=== PATIENT | female | born 1945 | race Caucasian/White ===

== ENCOUNTER 2017-07-04 18:20 | Emergency (ER) | payer MEDICARE, BC ==
[2017-07-04 18:42] VITALS: BP 197/101
--- NOTE | 2017-07-04 18:55 | UC ---
Abdominal Pain Female HPI - HPI Summary HPI Summary: This 72-year-old lady comes to the urgent care tonight with 5 days of nausea and vomiting denies fevers denies diarrhea denies illness exposures. - History of Current Complaint Chief Complaint: UCGU Stated Complaint: VOMITING Time Seen by Provider: 07/04/17 18:47 Hx Obtained From: Patient Hx Last Menstrual Period: post ?: No Onset/Duration: Gradual Onset, Lasting Days - 4-5, Still Present Timing: Constant Severity Initially: Moderate Severity Currently: Moderate Pain Intensity: 6 Pain Scale Used: 0-10 Numeric Location: Diffuse Radiates: No Aggravating Factor(s): Food Alleviating Factor(s): Nothing Associated Signs and Symptoms: Positive: Decreased Appetite, Nausea, Vomiting Allergies/Adverse Reactions: Allergies Allergy/AdvReac Type Severity Reaction Status Date / Time amoxicillin [From Augmentin] Allergy , abd pain Verified 07/04/17 19:27 carisoprodol [From Soma] Allergy Dizziness Verified 07/04/17 19:27 celecoxib [From Celebrex] Allergy GI bleed Verified 07/04/17 19:27 cephalexin [From Keflex] Allergy intestinal Verified 07/04/17 19:27 infection clavulanic acid Allergy , abd pain Verified 07/04/17 19:27 [From Augmentin] montelukast [From Singulair] Allergy GI Upset Verified 07/04/17 19:27 nabumetone [From Relafen] Allergy Diarrhea Verified 07/04/17 19:27 Penicillins Allergy bloody Verified 07/04/17 19:27 diarrhea rofecoxib [From Vioxx] Allergy elevated Verified 07/04/17 19:27 blood pressure Sulfa (Sulfonamide Allergy bloody Verified 07/04/17 19:27 Antibiotics) diarrhea sulfamethoxazole Allergy Abdominal Verified 07/04/17 19:27 [From Septra] Pain trimethoprim [From Septra] Allergy Abdominal Verified 07/04/17 19:27 Pain Home Medications: Home Medications lamoTRIgine TAB(*) [Lamictal TAB(*)] 250 mg PO BID 07/04/17 [History Confirmed 07/04/17] PMH/Surg Hx/FS Hx/Imm Hx Previously Healthy: No - chronic pain Cardiovascular History: Hypertension GI/ History: Gastroesophageal Reflux Neurological History: Seizures - Surgical History Surgical History: Yes Surgery Procedure, Year, and Place: HYSTERECTOMY 1989. EYE SURGERY A CHILD. TONSILS. APPENDECTOMY - Family History Known Family History: Positive: None - Social History Occupation: Retired Lives: With Family Alcohol Use: None Substance Use Type: None Smoking Status (MU): Former Smoker Review of Systems Constitutional: Negative Skin: Negative Eyes: Negative ENT: Negative Respiratory: Negative Cardiovascular: Negative Gastrointestinal: Abdominal Pain, Vomiting, Nausea Genitourinary: Negative Motor: Negative Neurovascular: Negative Musculoskeletal: Negative Neurological: Negative Psychological: Negative Is Patient Immunocompromised?: No All Other Systems Reviewed And Are Negative: Yes Physical Exam Triage Information Reviewed: Yes Appearance: Well-Nourished, Ill-Appearing, Pain Distress Vital Signs: Initial Vital Signs Temp 100 F 07/04/17 18:33 Pulse 96 07/04/17 18:33 Resp 16 07/04/17 18:33 BP 197/101 07/04/17 18:33 Pulse Ox 96 07/04/17 18:33 Vital Signs Reviewed: Yes Eye Exam: Normal Eyes: Positive: Conjunctiva Clear ENT Exam: Normal ENT: Positive: Normal ENT inspection, Hearing grossly normal, Pharynx normal, Uvula midline. Negative: Nasal drainage, Trismus, Muffled voice, Hoarse voice, Dental tenderness, Sinus tenderness Dental Exam: Normal Neck exam: Normal Neck: Positive: Supple, Nontender Respiratory Exam: Normal Respiratory: Positive: Chest non-tender, Lungs clear, Normal breath sounds, No respiratory distress, No accessory muscle use Cardiovascular Exam: Normal Cardiovascular: Positive: RRR, No Murmur, Pulses Normal, Brisk Capillary Refill Abdominal Exam: Other Abdomen Description: Positive: No Organomegaly, Soft, Other: - Diffuse generalized discomfort. Negative: CVA Tenderness (R), CVA Tenderness (L), Distended, Guarding, Hernia @, Hepatomegaly, McBurney's Point Tenderness, Peritoneal Signs, Pulsatile Mass, Splenomegaly Bowel Sounds: Positive: Present - No Musculoskeletal Exam: Normal Musculoskeletal: Positive: Strength Intact, ROM Intact, No Edema Neurological Exam: Normal Neurological: Positive: Alert, Muscle Tone Normal Psychological Exam: Normal Skin Exam: Normal Abd Pain Female Course/Dx - Course Course Of Treatment: Patient will maintain nothing by mouth for report to the hospital for further evaluation care and treatment patient refuses ambulance will be driving - Differential Dx/Diagnosis Provider Diagnoses: Acute nausea vomiting, hypertension and poor control Discharge - Sign-Out/Discharge Documenting (check all that apply): Discharge - Discharge Plan Condition: Guarded Disposition: HOME Discharge Disposition Comment: to emergency Department by private car Patient Education Materials: Acute Nausea and Vomiting (ED) Referrals: Erin Boo MD [Primary Care Provider] - Additional Instructions: Ms. Feliciano, as we spoke about in the room her best recommendation fewest go to the emergency department for further evaluation of this acute nausea vomiting and abdominal pain. Please have nothing to eat or drink until you're evaluated and cleared by the emergency room physician. So we are discharging her from the urgent care to go directly to the emergency Department acute [facility] for further evaluation - Billing Disposition and Condition Condition: GUARDED Disposition: HOME
== END 2017-07-04 19:09 | disposition home or self-care (01) ==
LOC: UCEAST 18:20
DX: R11.2 Nausea with vomiting, unspecified (principal); I10 Essential (primary) hypertension; K21.9 Gastro-esophageal reflux disease without esophagitis; R56.9 Unspecified convulsions; Z88.1 Allergy status to other antibiotic agents; Z88.0 Allergy status to penicillin; Z88.2 Allergy status to sulfonamides; Z88.8 Allergy status to other drugs, medicaments and biological substances; Z87.891 Personal history of nicotine dependence
CPT/HCPCS: 99212; G0463

== ENCOUNTER 2017-07-04 19:17 | Emergency (ER) | payer MEDICARE, BC ==
[2017-07-04 20:58] LABS: ABS Basophils 0 10^3/ul (0-0.2); ABS Eosinophils 0 10^3/ul (0-0.6); ABS Lymphocytes 0.9 10^3/ul (1.0-4.8); ABS Monocytes 0.5 10^3/ul (0-0.8); ABS Neutrophils 6.5 10^3/ul (1.5-7.7); ABS Nucleated RBC 0 10^3/ul; Eosinophil % 0 % (0-6); Hematocrit 44 % (35-47); Hemoglobin 14.9 g/dl (12.0-16.0); Lymphocyte % 11.2 % (25-47); Mean Corpuscular HGB Conc 34 g/dl (31-36); Mean Corpuscular Hemoglobin 28 pg (27-31); Mean Corpuscular Volume 81 fL (80-97); Mean Platelet Volume 7.9 um3 (7.4-10.4); Nucleated Red Blood Cells % 0; Platelet Count 201 10^3/ul (150-450); Red Blood Count 5.42 10^6/ul (4.0-5.4); Red Cell Distribution Width 14 % (10.5-15); White Blood Count 7.9 10^3/ul (3.5-10.8)
[2017-07-04 21:43] LABS: Urine Appearance Clear; Urine Blood Negative (Negative); Urine Color Yellow; Urine Ketones 2+ (Negative); Urine Protein Negative (Negative); Urine Specific Gravity 1.015 (1.010-1.030); Urine Urobilinogen Negative (Negative)
[2017-07-04] MEDS ORDERED: Famotidine TAB* 20 MG PO ONE (22:27)
[2017-07-04] MEDS ORDERED: NS 0.9% 1000 ML* 1,000 ML IV ONE (22:27)
[2017-07-04] MEDS ORDERED: Lidocaine 2% VISCOUS* 15 ML UDC PO ONE (22:27)
[2017-07-04] MEDS ORDERED: Ondansetron INJ* 2 MG/ML VIAL IV ONE (22:27)
[2017-07-04] MEDS ORDERED: Ondansetron ODT TAB* 4 MG PO ONE (23:33)
[2017-07-04 23:55] VITALS: BP 170/96
--- NOTE | 2017-07-05 00:38 | ED ---
Debbie Garcia Abhishek, scribed for Geremias Munoz MD on 07/05/17 at 0019 . Abdominal Pain/Female - HPI Summary HPI Summary: The pt is a 72 y/o F presenting to the [facility] with a chief complaint of vomiting. The pt reports the symptoms have been present since Sunday (06/30/17) . She also reports of diarrhea, coughing, nausea, runny nose, and sore throat. She states she is unable to "keep anything down." PT also denies urinary symptoms. The patient rates the pain 2/10 in severity. Symptoms aggravated by nothing. Symptoms alleviated by nothing. - History of Current Complaint Chief Complaint: EDNauseaVomitDiarrh Stated Complaint: VOMITING/COUGH Time Seen by Provider: 07/04/17 22:15 Hx Obtained From: Patient Hx Last Menstrual Period: post Onset/Duration: Lasting Days - since Sunday (06/30/17) Severity Currently: None Pain Intensity: 0 Pain Scale Used: 0-10 Numeric Aggravating Factor(s): Nothing Alleviating Factor(s): Nothing Associated Signs and Symptoms: Positive: Cough, Nausea, Vomiting, Diarrhea, Other: - Sore throat. Negative: Urinary Symptoms Allergies/Adverse Reactions: Allergies Allergy/AdvReac Type Severity Reaction Status Date / Time amoxicillin [From Augmentin] Allergy , abd pain Verified 07/04/17 19:27 carisoprodol [From Soma] Allergy Dizziness Verified 07/04/17 19:27 celecoxib [From Celebrex] Allergy GI bleed Verified 07/04/17 19:27 cephalexin [From Keflex] Allergy intestinal Verified 07/04/17 19:27 infection clavulanic acid Allergy , abd pain Verified 07/04/17 19:27 [From Augmentin] montelukast [From Singulair] Allergy GI Upset Verified 07/04/17 19:27 nabumetone [From Relafen] Allergy Diarrhea Verified 07/04/17 19:27 Penicillins Allergy bloody Verified 07/04/17 19:27 diarrhea rofecoxib [From Vioxx] Allergy elevated Verified 07/04/17 19:27 blood pressure Sulfa (Sulfonamide Allergy bloody Verified 07/04/17 19:27 Antibiotics) diarrhea sulfamethoxazole Allergy Abdominal Verified 07/04/17 19:27 [From ] Pain trimethoprim [From ] Allergy Abdominal Verified 07/04/17 19:27 Pain PMH/Surg Hx/FS Hx/Imm Hx Endocrine/Hematology History: Denies: Hx Diabetes Cardiovascular History: Reports: Hx Hypertension History: Denies: Hx Renal Disease - Cancer History Hx Chemotherapy: No Hx Radiation Therapy: No - Surgical History Surgery Procedure, Year, and Place: HYSTERECTOMY 1989. EYE SURGERY A CHILD. TONSILS. APPENDECTOMY Infectious Disease History: No Infectious Disease History: Denies: Traveled Outside the [place] in Last 30 Days - Family History Known Family History: Positive: Cardiac Disease Negative: Diabetes - Social History Alcohol Use: None Substance Use Type: Reports: None Smoking Status (MU): Former Smoker Review of Systems Constitutional: Negative Eyes: Negative Positive: Sore Throat Cardiovascular: Negative Positive: Cough Positive: Abdominal Pain, Vomiting, Diarrhea, Nausea Positive: no symptoms reported Musculoskeletal: Negative Skin: Negative Neurological: Negative Psychological: Normal All Other Systems Reviewed And Are Negative: Yes Physical Exam - Summary Physical Exam Summary: Appearance: Well appearing, no pain distress Skin: warm, dry, reflects adequate perfusion Head/face: normal Eyes: EOMI, WALKER ENT: Nasal congestion, minor erythema in the throat, Skin thickened reddened areas in the mouth Neck: supple, non-tender Respiratory: CTA, breath sounds present Cardiovascular: RRR, pulses symmetrical Abdomen: non-tender, soft Bowel Sounds: decerased bowel sounds Musculoskeletal: normal, strength/ROM intact Neuro: normal, sensory motor intact, A&Ox3 Triage Information Reviewed: Yes Vital Signs On Initial Exam: Initial Vitals Temp Pulse Resp BP Pulse Ox 99.2 F 85 18 190/104 99 07/04/17 19:25 07/04/17 19:25 07/04/17 19:25 07/04/17 19:25 07/04/17 19:25 Vital Signs Reviewed: Yes Diagnostics - Vital Signs Vital Signs Temp Pulse Resp BP Pulse Ox 07/04/17 23:54 99.0 F 85 16 170/96 99 07/04/17 19:25 99.2 F 85 18 190/104 99 - Laboratory Lab Results: Lab Results 07/04/17 07/04/17 07/04/17 Range/Units 20:39 20:39 21:21 WBC 7.9 (3.5-10.8) 10^3/ul RBC 5.42 H (4.0-5.4) 10^6/ul Hgb 14.9 (12.0-16.0) g/dl Hct 44 (35-47) % MCV 81 (80-97) fL MCH 28 (27-31) pg MCHC 34 (31-36) g/dl RDW 14 (10.5-15) % Plt Count 201 (150-450) 10^3/ul MPV 7.9 (7.4-10.4) um3 Neut % (Auto) 81.7 (38-83) % Lymph % (Auto) 11.2 L (25-47) % Runnels % (Auto) 6.9 (0-7) % Eos % (Auto) 0 (0-6) % Baso % (Auto) 0.2 (0-2) % Absolute Neuts (auto) 6.5 (1.5-7.7) 10^3/ul Absolute Lymphs (auto) 0.9 L (1.0-4.8) 10^3/ul Absolute Monos (auto) 0.5 (0-0.8) 10^3/ul Absolute Eos (auto) 0 (0-0.6) 10^3/ul Absolute Basos (auto) 0 (0-0.2) 10^3/ul Absolute Nucleated RBC 0 10^3/ul Nucleated RBC % 0 Sodium 135 L (139-145) mmol/L Potassium 3.6 (3.5-5.0) mmol/L Chloride 99 L (101-111) mmol/L Carbon Dioxide 24 (22-32) mmol/L Anion Gap 12 H (2-11) mmol/L BUN 6 (6-24) mg/dL Creatinine 0.64 (0.51-0.95) mg/dL Est GFR ( Amer) 117.0 (>60) Est GFR (Non-Af Amer) 91.0 (>60) BUN/Creatinine Ratio 9.4 (8-20) Glucose 108 H (70-100) mg/dL Calcium 10.0 (8.6-10.3) mg/dL Total Bilirubin 0.50 (0.2-1.0) mg/dL AST 26 (13-39) U/L ALT 19 (7-52) U/L Alkaline Phosphatase 68 (34-104) U/L Total Protein 7.6 (6.4-8.9) g/dL Albumin 4.6 (3.2-5.2) g/dL Globulin 3.0 (2-4) g/dL Albumin/Globulin Ratio 1.5 (1-3) Urine Color Yellow Urine Appearance Clear Urine pH 7.0 (5-9) Ur Specific [place] 1.015 (1.010-1.030) Urine Protein Negative (Negative) Urine Ketones 2+ A (Negative) Urine Blood Negative (Negative) Urine Nitrate Negative (Negative) Urine Bilirubin Negative (Negative) Urine Urobilinogen Negative (Negative) Ur Leukocyte Esterase Trace A (Negative) Urine WBC (Auto) Trace(0-5/hpf) (Absent) Urine RBC (Auto) 1+(3-5/hpf) A (Absent) Ur Squamous Epith Cells Present A (Absent) Urine Bacteria Absent (Absent) Urine Glucose Negative (Negative) Result Diagrams: 07/04/17 20:39 07/04/17 20:39 Lab Statement: Any lab studies that have been ordered have been reviewed, and results considered in the medical decision making process. Re-Evaluation - Re-Evaluation First Eval Change: Improved Abdominal Pain Fem Course/Dx - Course Course Of Treatment: URI sx now with vomiting and burning in throat. Given IVF and pepcid/visc lidocaine along with zofran with complete relief. Labs benign. Abd soft and nontender. D/C on similar meds. F/U PMD. - Diagnoses Provider Diagnoses: Upper respiratory infection, Acute gastritis Discharge - Sign-Out/Discharge Documenting (check all that apply): Discharge - Discharged home - Discharge Plan Condition: Improved Disposition: HOME Prescriptions: Famotidine TAB* [Pepcid 20 MG TAB*] 20 mg PO BID #10 tab Ondansetron [Zofran Odt] 4 mg PO TID PRN #10 tab.rapdis PRN Reason: Nausea Patient Education Materials: Gastritis (ED), Upper Respiratory Infection (ED) Referrals: Erin Boo MD [Primary Care Provider] - Additional Instructions: Stay well hydrated. Avoid ibuprofen, caffeine and alcohol. Return with persistent vomiting, trouble breathing, worse or other concerns. You may experience diarrhea. Call your doctor first thing in the morning to follow up. - Billing Disposition and Condition Condition: IMPROVED Disposition: HOME The documentation as recorded by the Debbie pickard Abhishek accurately reflects the service I personally performed and the decisions made by me, Geremias Munoz MD.
== END 2017-07-04 23:56 | disposition home or self-care (01) ==
LOC: ED 19:17
DX: K29.70 Gastritis, unspecified, without bleeding (principal); J06.9 Acute upper respiratory infection, unspecified; R05 Cough; R11.2 Nausea with vomiting, unspecified; R19.7 Diarrhea, unspecified; J02.9 Acute pharyngitis, unspecified; Z87.891 Personal history of nicotine dependence; I10 Essential (primary) hypertension; K21.9 Gastro-esophageal reflux disease without esophagitis; R56.9 Unspecified convulsions; Z88.1 Allergy status to other antibiotic agents; Z88.0 Allergy status to penicillin; Z88.2 Allergy status to sulfonamides; Z88.8 Allergy status to other drugs, medicaments and biological substances
CPT/HCPCS: 36415; 80053; 81003; 81015; 85025; 87086; 96374; 99212; 99283; A9270-GY; G0463; J2405

== ENCOUNTER 2017-07-08 10:51 | Inpatient (IN) | payer MEDICARE, BC ==
[2017-07-08] MEDS ORDERED: NS 0.9% 1000 ML* 1,000 ML IV ONE (11:21)
--- NOTE | 2017-07-08 11:50 | RAD ---
HISTORY: Nausea and vomiting COMPARISONS: None VIEWS: Frontal supine and upright views of the abdomen. FINDINGS: BOWEL: There is a nonobstructive bowel gas pattern. There is a large amount of stool within the colon. CALCULI: There are no abnormal calculi. BONES AND SOFT TISSUES: There is a scoliotic curvature of the spine. Mild degenerative changes are noted. OTHER FINDINGS: The lung bases are clear. There is no subphrenic gas. IMPRESSION: NONOBSTRUCTIVE BOWEL GAS PATTERN.
[2017-07-08] MEDS ORDERED: Ondansetron INJ* 2 MG/ML VIAL IV ONE (12:24)
[2017-07-08 12:29] LABS: ABS Basophils 0 10^3/ul (0-0.2); ABS Eosinophils 0 10^3/ul (0-0.6); ABS Lymphocytes 0.9 10^3/ul (1.0-4.8); ABS Monocytes 0.5 10^3/ul (0-0.8); ABS Neutrophils 3.8 10^3/ul (1.5-7.7); ABS Nucleated RBC 0 10^3/ul; Eosinophil % 0.1 % (0-6); Hematocrit 40 % (35-47); Hemoglobin 13.7 g/dl (12.0-16.0); Lymphocyte % 17.7 % (25-47); Mean Corpuscular HGB Conc 34 g/dl (31-36); Mean Corpuscular Hemoglobin 27 pg (27-31); Mean Corpuscular Volume 80 fL (80-97); Mean Platelet Volume 7.4 um3 (7.4-10.4); Nucleated Red Blood Cells % 0; Platelet Count 202 10^3/ul (150-450); Red Blood Count 5.01 10^6/ul (4.0-5.4); Red Cell Distribution Width 14 % (10.5-15); White Blood Count 5.2 10^3/ul (3.5-10.8)
[2017-07-08 12:38] LABS: INR 0.94 (0.77-1.02)
[2017-07-08 12:44] LABS: EGFR Non-African American 92.6 (>60)
[2017-07-08] MEDS ORDERED: Iohexol 300* (CONTRAST) 10 ML SDV IV ONE (13:45)
[2017-07-08 13:57] LABS: Urine Appearance Clear; Urine Blood 1+ (Negative); Urine Color Straw; Urine Ketones Trace (Negative); Urine Protein Negative (Negative); Urine Specific Gravity 1.003 (1.010-1.030); Urine Urobilinogen Negative (Negative)
--- NOTE | 2017-07-08 14:36 | RAD ---
CLINICAL HISTORY: Nausea and vomiting COMPARISON: None TECHNIQUE: Multiple contiguous axial CT scans were obtained of the abdomen and pelvis after the administration of intravenous contrast. Coronal and sagittal multiplanar reformations are submitted for review. Oral contrast was administered. Delayed images were obtained through the abdomen and pelvis. FINDINGS: LUNG BASES: The lung bases are clear. LIVER: The liver is normal in shape, size, contour, and attenuation. BILE DUCTS: There is no intrahepatic or extrahepatic biliary dilatation. GALLBLADDER: The gallbladder is normal, without pericholecystic inflammatory change. PANCREAS: The pancreas is normal, without mass or ductal dilatation. SPLEEN: Normal in size and appearance. UPPER GI TRACT: Evaluation of the gastrointestinal tract is limited by incomplete gastric distention. The upper GI tract is unremarkable. SMALL BOWEL AND MESENTERY: The small bowel is normal in contour, course, and caliber. There is no obstruction or dilatation. COLON: There is segmental mucosal thickening of the ascending colon best seen on coronal image 40, with narrowing of the lumen of the large bowel. The appendix is not clearly visualized. ADRENALS: Normal bilaterally. KIDNEYS: The kidneys are normal in shape, size, contour, and axis. There is no hydronephrosis or nephrolithiasis. BLADDER: The bladder is smooth in contour. PELVIC ORGANS: The pelvic organs are not visualized. AORTA: There is calcific atherosclerotic disease of the abdominal aorta and its branches, without aneurysmal dilatation IVC: Unremarkable LYMPH NODES: There is no lymphadenopathy by size criteria. ABDOMINAL WALL: There is no evidence for abdominal wall hernia. BONES AND SOFT TISSUES: There is grade 1 anterolisthesis of L4-L5. OTHER: None IMPRESSION: THERE IS FOCAL MUCOSAL THICKENING AND NARROWING OF THE LUMEN OF THE ASCENDING COLON. WHILE THIS MAY BE AN ARTIFACT OF PERISTALSIS OR MAY REPRESENT FOCAL COLITIS, INCLUDING IN THE SETTING OF INFLAMMATORY BOWEL DISEASE, MUCOSAL NEOPLASM IS ALSO WITHIN THE DIFFERENTIAL. RECOMMEND CONSIDERATION OF CORRELATION WITH DIRECT VISUALIZATION. ATHEROSCLEROSIS.
[2017-07-08] MEDS ORDERED: Potassium Chlor TAB* 20 MEQ TAB.ER PO ONE (15:03)
[2017-07-08] MEDS ORDERED: NS 0.9% 1000 ML* 1,000 ML IV SCH (16:15)
[2017-07-08] MEDS ORDERED: oxyCODONE TAB* 5 MG TAB PO PRN (16:52)
[2017-07-08] MEDS ORDERED: Ondansetron ODT TAB* 4 MG PO PRN (16:52)
[2017-07-08] MEDS: NS 0.9% w/ 40 Meq KCL 1000 ML* 1,000 ML IV SCH (18:31)
--- NOTE | 2017-07-08 18:31 | ED ---
Gosia Garcia Gabriel, scribed for Paulo Layton MD on 07/08/17 at 1114 . GI/ HPI - HPI Summary HPI Summary: This patient is a 72 year old F presenting to [facility] accompanied by her with a chief complaint of vomiting that began a week ago. She has not vomited today. The patient rates the pain 2/10 in severity. Patient reports nausea, cough, inability to pass stool for the last 5 days, and decreased PO intake. Patient denies ABD pain and that she has passed gas. Hx appendectomy. The patient was recently diagnosed with the flu and was seen on 07-04-17 for the same current symptoms. - History of Current Complaint Chief Complaint: EDNauseaVomitDiarrh Time Seen by Provider: 07/08/17 11:08 Stated Complaint: NAUSEA/COUGHING Hx Obtained From: Patient Hx Last Menstrual Period: post Onset/Duration: Started Weeks Ago - 1, Still Present Timing: Constant Severity: Moderate Current Severity: Moderate Pain Intensity: 2 Location of Pain: Diffuse Associated Signs and Symptoms: Positive: Negative - ABD pain and that she has passed gas., Other: - nausea, cough, inability to pass stool for the last 5 days , and decreased PO intake - Allergy/Home Medications Allergies/Adverse Reactions: Allergies Allergy/AdvReac Type Severity Reaction Status Date / Time amoxicillin [From Augmentin] Allergy , abd pain Verified 07/08/17 10:55 carisoprodol [From Soma] Allergy Dizziness Verified 07/08/17 10:55 celecoxib [From Celebrex] Allergy GI bleed Verified 07/08/17 10:55 cephalexin [From Keflex] Allergy intestinal Verified 07/08/17 10:55 infection clavulanic acid Allergy , abd pain Verified 07/08/17 10:55 [From Augmentin] montelukast [From Singulair] Allergy GI Upset Verified 07/08/17 10:55 nabumetone [From Relafen] Allergy Diarrhea Verified 07/08/17 10:55 Penicillins Allergy bloody Verified 07/08/17 10:55 diarrhea rofecoxib [From Vioxx] Allergy elevated Verified 07/08/17 10:55 blood pressure Sulfa (Sulfonamide Allergy bloody Verified 07/08/17 10:55 Antibiotics) diarrhea sulfamethoxazole Allergy Abdominal Verified 07/08/17 10:55 [From Septra] Pain trimethoprim [From ] Allergy Abdominal Verified 07/08/17 10:55 Pain Home Medications: Home Medications Aspirin EC TAB* [Ecotrin EC Low Dose 81 MG*] 81 mg PO DAILY 07/08/17 [History Confirmed 07/08/17] Atorvastatin* [Lipitor*] 20 mg PO DAILY 07/08/17 [History Confirmed 07/08/17] Docusate Sodium [Stool Softener] 250 mg PO BID 07/08/17 [History Confirmed 07/08] Milnacipran(NF) [Savella(NF)] 50 mg PO BID 07/08/17 [History Confirmed 07/08/17] Moexipril HCl 15 mg PO DAILY 07/08/17 [History Confirmed 07/08/17] Senna TAB* [Senokot TAB*] 1 tab PO BID 07/08/17 [History Confirmed 07/08/17] lamoTRIgine TAB(*) [LaMICtal TAB(*)] 250 mg PO BID 07/08/17 [History Confirmed 07/08/17] oxyCODONE SR TAB(*) [Oxycontin 10 mg (*)] 30 mg PO Q12H 07/08/17 [History Confirmed 07/08/17] oxyCODONE TAB* [Roxycodone TAB 5 mg*] 5 mg PO .QD-TID PRN 07/08/17 [History Confirmed 07/08/17] PMH/Surg Hx/FS Hx/Imm Hx Endocrine/Hematology History: Denies: Hx Diabetes Cardiovascular History: Reports: Hx Hypertension History: Denies: Hx Renal Disease - Cancer History Hx Chemotherapy: No Hx Radiation Therapy: No - Surgical History Surgery Procedure, Year, and Place: HYSTERECTOMY 1989. EYE SURGERY A CHILD. TONSILS. APPENDECTOMY Infectious Disease History: No Infectious Disease History: Denies: Traveled Outside the [place] in Last 30 Days - Family History Known Family History: Positive: Cardiac Disease Negative: Diabetes - Social History Alcohol Use: None Substance Use Type: Reports: None Smoking Status (MU): Former Smoker Review of Systems Positive: Other - decreased PO intake Positive: Cough Gastrointestinal: Other - inability to pass stool and gas Positive: Vomiting, Nausea. Negative: Abdominal Pain All Other Systems Reviewed And Are Negative: Yes Physical Exam - Summary Physical Exam Summary: VITAL SIGNS: Reviewed. GENERAL: Patient is a well-developed and nourished female who is lying comfortable in the stretcher. Patient is not in any acute respiratory distress. HEAD AND FACE: No signs of trauma. No ecchymosis, hematomas or skull depressions. No sinus tenderness. EYES: PERRLA, EOMI x 2, No injected conjunctiva, no nystagmus. EARS: Hearing grossly intact. Ear canals and tympanic membranes are within normal limits. MOUTH: Oropharynx within normal limits. NECK: Supple, trachea is midline, no adenopathy, no JVD, no carotid bruit, no c- spine tenderness, neck with full ROM. CHEST: Symmetric, no tenderness at palpation LUNGS: Clear to auscultation bilaterally. No wheezing or crackles. CVS: Regular rate and rhythm, S1 and S2 present, no murmurs or gallops appreciated. ABDOMEN: Soft, non-tender. No signs of distention. No rebound no guarding, and no masses palpated. Bowel sounds are decreased EXTREMITIES: FROM in all major joints, no edema, no cyanosis or clubbing. NEURO: Alert and oriented x 3. No acute neurological deficits. Speech is normal and follows commands. SKIN: Dry and warm Triage Information Reviewed: Yes Vital Signs On Initial Exam: Initial Vitals Temp Pulse Resp BP Pulse Ox 98.8 F 92 15 163/89 97 07/08/17 10:55 07/08/17 10:55 07/08/17 10:55 07/08/17 10:55 07/08/17 10:55 Vital Signs Reviewed: Yes Diagnostics - Vital Signs Vital Signs Temp Pulse Resp BP Pulse Ox 07/08/17 10:55 98.8 F 92 15 163/89 97 - Laboratory Lab Results: Lab Results 07/08/17 07/08/17 07/08/17 Range/Units 12:10 12:10 12:10 WBC 5.2 (3.5-10.8) 10^3/ul RBC 5.01 (4.0-5.4) 10^6/ul Hgb 13.7 (12.0-16.0) g/dl Hct 40 (35-47) % MCV 80 (80-97) fL MCH 27 (27-31) pg MCHC 34 (31-36) g/dl RDW 14 (10.5-15) % Plt Count 202 (150-450) 10^3/ul MPV 7.4 (7.4-10.4) um3 Neut % (Auto) 73.1 (38-83) % Lymph % (Auto) 17.7 L (25-47) % Swisher % (Auto) 8.9 H (0-7) % Eos % (Auto) 0.1 (0-6) % Baso % (Auto) 0.2 (0-2) % Absolute Neuts (auto) 3.8 (1.5-7.7) 10^3/ul Absolute Lymphs (auto) 0.9 L (1.0-4.8) 10^3/ul Absolute Monos (auto) 0.5 (0-0.8) 10^3/ul Absolute Eos (auto) 0 (0-0.6) 10^3/ul Absolute Basos (auto) 0 (0-0.2) 10^3/ul Absolute Nucleated RBC 0 10^3/ul Nucleated RBC % 0 INR (Anticoag Therapy) (0.77-1.02) APTT (26.0-36.3) seconds Sodium 132 L (139-145) mmol/L Potassium 3.0 L (3.5-5.0) mmol/L Chloride 92 L (101-111) mmol/L Carbon Dioxide 30 (22-32) mmol/L Anion Gap 10 (2-11) mmol/L BUN 4 L (6-24) mg/dL Creatinine 0.63 (0.51-0.95) mg/dL Est GFR ( Amer) 119.1 (>60) Est GFR (Non-Af Amer) 92.6 (>60) BUN/Creatinine Ratio 6.3 L (8-20) Glucose 116 H (70-100) mg/dL Lactic Acid 1.0 (0.5-2.0) mmol/L Calcium 9.8 (8.6-10.3) mg/dL Total Bilirubin 0.60 (0.2-1.0) mg/dL AST 23 (13-39) U/L ALT 19 (7-52) U/L Alkaline Phosphatase 64 (34-104) U/L Troponin I 0.00 (<0.04) ng/mL C-Reactive Protein 87.22 H (< 5.00) mg/L Total Protein 7.3 (6.4-8.9) g/dL Albumin 4.2 (3.2-5.2) g/dL Globulin 3.1 (2-4) g/dL Albumin/Globulin Ratio 1.4 (1-3) Amylase 19 L (29-103) U/L Lipase < 10 L (11.0-82.0) U/L Urine Color Urine Appearance Urine pH (5-9) Ur Specific [place] (1.010-1.030) Urine Protein (Negative) Urine Ketones (Negative) Urine Blood (Negative) Urine Nitrate (Negative) Urine Bilirubin (Negative) Urine Urobilinogen (Negative) Ur Leukocyte Esterase (Negative) Urine WBC (Auto) (Absent) Urine RBC (Auto) (Absent) Ur Squamous Epith Cells (Absent) Urine Bacteria (Absent) Urine Glucose (Negative) 07/08/17 07/08/17 Range/Units 12:10 13:36 WBC (3.5-10.8) 10^3/ul RBC (4.0-5.4) 10^6/ul Hgb (12.0-16.0) g/dl Hct (35-47) % MCV (80-97) fL MCH (27-31) pg MCHC (31-36) g/dl RDW (10.5-15) % Plt Count (150-450) 10^3/ul MPV (7.4-10.4) um3 Neut % (Auto) (38-83) % Lymph % (Auto) (25-47) % Swisher % (Auto) (0-7) % Eos % (Auto) (0-6) % Baso % (Auto) (0-2) % Absolute Neuts (auto) (1.5-7.7) 10^3/ul Absolute Lymphs (auto) (1.0-4.8) 10^3/ul Absolute Monos (auto) (0-0.8) 10^3/ul Absolute Eos (auto) (0-0.6) 10^3/ul Absolute Basos (auto) (0-0.2) 10^3/ul Absolute Nucleated RBC 10^3/ul Nucleated RBC % INR (Anticoag Therapy) 0.94 (0.77-1.02) APTT 20.2 L (26.0-36.3) seconds Sodium (139-145) mmol/L Potassium (3.5-5.0) mmol/L Chloride (101-111) mmol/L Carbon Dioxide (22-32) mmol/L Anion Gap (2-11) mmol/L BUN (6-24) mg/dL Creatinine (0.51-0.95) mg/dL Est GFR ( Amer) (>60) Est GFR (Non-Af Amer) (>60) BUN/Creatinine Ratio (8-20) Glucose (70-100) mg/dL Lactic Acid (0.5-2.0) mmol/L Calcium (8.6-10.3) mg/dL Total Bilirubin (0.2-1.0) mg/dL AST (13-39) U/L ALT (7-52) U/L Alkaline Phosphatase (34-104) U/L Troponin I (<0.04) ng/mL C-Reactive Protein (< 5.00) mg/L Total Protein (6.4-8.9) g/dL Albumin (3.2-5.2) g/dL Globulin (2-4) g/dL Albumin/Globulin Ratio (1-3) Amylase (29-103) U/L Lipase (11.0-82.0) U/L Urine Color Straw Urine Appearance Clear Urine pH 7.0 (5-9) Ur Specific [place] 1.003 L (1.010-1.030) Urine Protein Negative (Negative) Urine Ketones Trace A (Negative) Urine Blood 1+ A (Negative) Urine Nitrate Negative (Negative) Urine Bilirubin Negative (Negative) Urine Urobilinogen Negative (Negative) Ur Leukocyte Esterase Trace A (Negative) Urine WBC (Auto) Trace(0-5/hpf) (Absent) Urine RBC (Auto) Trace(0-2/hpf) (Absent) Ur Squamous Epith Cells Present A (Absent) Urine Bacteria Absent (Absent) Urine Glucose Negative (Negative) Result Diagrams: 07/08/17 12:10 07/08/17 12:10 Lab Statement: Any lab studies that have been ordered have been reviewed, and results considered in the medical decision making process. - Radiology ABD Xray Radiology Interpretation Completed By: Radiologist - NONOBSTRUCTIVE BOWEL GAS PATTERN. ED physician has reviewed this radiology report. - CT CT ABD/pelvis CT Interpretation Completed By: Radiologist - THERE IS FOCAL MUCOSAL THICKENING AND NARROWING OF THE LUMEN OF THE ASCENDING COLON. WHILE THIS MAY BE AN ARTIFACT OF PERISTALSIS OR MAY REPRESENT FOCAL COLITIS, INCLUDING IN THE SETTING OF INFLAMMATORY BOWEL DISEASE, MUCOSAL NEOPLASM IS ALSO WITHIN THE DIFFERENTIAL. RECOMMEND CONSIDERATION OF CORRELATION WITH DIRECT VISUALIZATION. ATHEROSCLEROSIS. Dr. Layton has reviewed this report. - EKG 12:13 Cardiac Rate: NL EKG Rhythm: Sinus Rhythm - at 83 BPM EKG Interpretation: multiple PVCs, no stemi GIGU Course/Dx - Course Assessment/Plan: In the ED course an IV access was obtained. Patient was placed in a rn cardiac cath. Patient was started with IV fluids for rehydration and Zofran for nausea and vomiting. Labs without any significant abnormality except for K+ 3 for which she was given K+CL. Troponin #1: 0.0. EKG shows a NSR w/o ST elevations. Abdominal Xray impression: NONOBSTRUCTIVE BOWEL GAS PATTERN. Abdominal and pelvic CT IMPRESSION: THERE IS FOCAL MUCOSAL THICKENING AND NARROWING OF THE LUMEN OF THE ASCENDING COLON. WHILE THIS MAY BE AN ARTIFACT OF PERISTALSIS OR MAY REPRESENT FOCAL COLITIS, INCLUDING IN THE SETTING OF INFLAMMATORY BOWEL DISEASE, MUCOSAL NEOPLASM IS ALSO WITHIN THE DIFFERENTIAL. RECOMMEND CONSIDERATION OF CORRELATION WITH DIRECT VISUALIZATION. ATHEROSCLEROSIS. I discussed the abd and pelvic CT results with Dr. Tovar and he will consult for the patient and recommends admission to the hospitalist. I discuss my physical exam, findings and test results with Dr. Gusman from the hospitalist services and he agrees to admit patient to his services. Patient is hemodynamically stable alert and oriented x 3. - Diagnoses Differential Diagnoses - Female: Bowel Obstruction, Constipation, Colitis, Fecal Impaction Provider Diagnoses: Nausea and vomiting, Colitis - Physician Notifications Discussed Care Of Patient With: Wendy Gusman Instructed by Provider To: Admit As Inpatient Discharge - Sign-Out/Discharge Documenting (check all that apply): Discharge - Discharge Plan Condition: Stable Disposition: ADMITTED TO [facility] - Billing Disposition and Condition Condition: STABLE Disposition: [facility] [place] The documentation as recorded by the Gosia pickard Gabriel accurately reflects the service I personally performed and the decisions made by , Paulo Layton MD.
[2017-07-08] MEDS: oxyCODONE SR TAB(*) 10 MG TAB.SR PO SCH (19:28)
[2017-07-08] MEDS: Famotidine TAB* 20 MG PO SCH (21:20)
[2017-07-08] MEDS: lamoTRIgine TAB(*) 100 MG PO SCH (21:23)
[2017-07-08] MEDS: Ondansetron INJ* 2 MG/ML VIAL IV PRN (21:23)
[2017-07-08] MEDS: Heparin VIAL(*) 5000 UNITS/ML VIAL (FIVE THOUSAND) SUBCUT SCH (21:24)
[2017-07-08] MEDS: MILNACIPRAN 50 MG PO SCH (21:42)
[2017-07-09] MEDS: NS 0.9% w/ 40 Meq KCL 1000 ML* 1,000 ML IV SCH ×2 (02:05→16:35)
--- NOTE | 2017-07-09 02:44 | HP ---
CC: Dr. Erin Boo * [facility] MEDICINE HISTORY AND PHYSICAL: DATE OF ADMISSION: 07/08/17 PRIMARY CARE PHYSICIAN: Dr. Erin Boo. ATTENDING PHYSICIAN: Dr. Manuelito Gandhi * (dictation provided by Isabelle Mejía NP ). CHIEF COMPLAINT: Nausea, vomiting and poor appetite. HISTORY OF PRESENT ILLNESS: Ms. Feliciano is a 72-year-old female with a past medical history of hypertension, hyperlipidemia, seizure disorder, suspected irritable bowel syndrome, fibromyalgia and depression, who presents to the hospital today with concern for 9 days of not feeling well including nausea, vomiting and poor appetite. Ms. Feliciano states that her symptoms began last Sunday. At that point, she just had a vague sense that things "just weren't right." By Sunday, she was having vomiting. She states that since Sunday, she has had on and off vomiting. She has vomited every day, sometimes 2 to 3 times a day. She notes that when she tries to eat that she often gags. She thinks that she has not been able to tolerate any oral intake including liquids. She denies any abdominal pain. She denies any diarrhea and states she has not had a bowel movement for 9 days. She tells me that she has not urinated for 9 days other than may be "a drip here or there." She denies any fever. She denies any chills. She has had no headache. She has had no chest pain. She has no shortness of breath. She states that her last colonoscopy was a few years ago and that when she was due for a repeat colonoscopy, she had a Cologuard test, which was negative. This was about 2 to 3 years ago. She states that she generally has periods of constipation alternating with diarrhea , which she thought was irritable bowel syndrome though she does not believe that she has an official diagnosis. Ms. Felciiano was seen in our emergency room on 07/04/17. At that time, she was evaluated and given intravenous fluids. Her exam and workup was unremarkable. She was discharged from the ED. No x-rays or CT was obtained at that time. She has been following with Dr. Kaci Goldman from Dr. Erin Boo's office. She had an appointment with her there on Sunday and spoke with Dr. Goldman yesterday as well. The recommendation was that if she did not feel better by today that she should come to the emergency room for evaluation. Here today, she has labs, which show trace leuk esterase, but otherwise negative urinalysis. She has no leukocytosis. Her CRP is 87.22. She has mild hyponatremia at 132, mild hypokalemia at 3.0, her BUN was low at 4, but her creatinine is normal. Her lipase was less than 10. Her amylase was 19 and her LFTs are normal. She had an abdominal x-ray that showed a nonobstructive bowel gas pattern. She then went on for an abdomen and pelvis CT, which showed " there is focal mucosal thickening and narrowing of the lumen of the ascending colon. While this may be an artifact or peristalsis, or may represent focal colitis including in the setting of inflammatory bowel disease, mucosal neoplasm is also within the differential. Recommend consideration of correlation with direct visualization. For this reason, Dr. Tovar was contacted and he requested that the patient be observed in the hospital overnight with plans for consultation tomorrow and possible direct visualization via colonoscopy. PAST MEDICAL HISTORY: 1. Seizure disorder, partial, well controlled. 2. Hyperlipidemia. 3. Hypertension. 4. Question of irritable bowel syndrome. 5. Fibromyalgia. 6. Depression. 7. Osteoarthritis. 8. History of C. difficile colitis. PAST SURGICAL HISTORY: 1. History of appendectomy. 2. History of hysterectomy. MEDICATIONS: 1. Docusate 250 mg p.o. b.i.d. 2. Moexipril 15 mg p.o. daily. 3. Senna 1 tab p.o. b.i.d. 4. Aspirin 81 mg p.o. daily. 5. Atorvastatin 20 mg p.o. daily. 6. Famotidine 20 mg p.o. b.i.d. 7. Lamotrigine 250 mg p.o. b.i.d. 8. Milnacipran 50 mg p.o. b.i.d. 9. Ondansetron 4 mg p.o. t.i.d. 10. Oxycodone SR 30 mg p.o. q.12 hours. 11. Oxycodone 5 mg p.o. t.i.d. p.r.n. pain. ALLERGIES: AMOXICILLIN, CARISOPRODOL, CELECOXIB, CEPHALEXIN, CLAVULANIC ACID, MONTELUKAST, NABUMETONE, PENICILLIN, ROFECOXIB, SULFA, SULFAMETHIZOLE and TRIMETHOPRIM. FAMILY HISTORY: The patient reports that her dad at age 42 from lymphosarcoma. Her mother just at age 93 of old age. She has a sister who had a cardiac arrest recently at age 66 during a back surgery, which she was revived. SOCIAL HISTORY: The patient quit smoking at the age about 19 years old. She states she used to drink heavily, but has not drank in a long time. No reported drug use. She lives with her , who is her healthcare proxy. REVIEW OF SYSTEMS: Constitutional: No fevers, chills. No unintended weight loss. Cardiac: No chest pain, no edema. Respiratory: No cough, hemoptysis or shortness of breath. GI: Positive for nausea, vomiting, no diarrhea, no abdominal pain. : No gross hematuria, dysuria. The patient reports poor urine output. Neuro: No focal weakness or sensory loss. Eyes: No visual complaints. ENT: No dysphagia. Musculoskeletal: Positive for chronic pain with fibromyalgia. Skin: No rashes or lesions. Psych: Positive for depression. PHYSICAL EXAMINATION GENERAL: Ms. Feliciano is lying in the bed with her daughter at the bedside. She is in no acute distress. VITAL SIGNS: Blood pressure 161/83, heart rate 80, respiratory rate 16, temperature 98.8, O2 saturation 94% on room air. LUNGS: Clear to auscultation bilaterally with no accessory muscle use and good aeration. HEART: S1, S2. No murmur, rub, or gallop and regular. ABDOMEN: Soft, it is nontender throughout. Bowel sounds are positive. There is no rebound. There is no guarding. EXTREMITIES: No cyanosis or edema. NEUROLOGIC: She is alert, she is oriented x3. She moves all extremities equally. There is no facial asymmetry or focal weakness. Extraocular movements are intact. SKIN: Intact. DIAGNOSTIC STUDIES/LAB DATA: WBC 5.2, hemoglobin 13.7, hematocrit 40, platelet count 202. INR 0.94, Sodium 132, potassium 3.0, chloride 92, serum bicarbonate 30, BUN 4, creatinine 0.63, glucose 116, lactic acid 1.0. CRP 87.22. Troponin 0.00. Amylase 19, lipase less than 10. Urine shows trace leuk esterase only. No other evidence of infection. The abdomen x-ray and the abdomen and pelvis CT are as read above in the HPI. ASSESSMENT: Ms. Feliciano is a 72-year-old female with a past medical history of hypertension, hyperlipidemia, questionable irritable bowel syndrome, seizure disorder, fibromyalgia, and depression who presents today to the hospital with concerns for feeling unwell for 9 days including symptoms of nausea, vomiting, poor appetite and inability to tolerate oral intake and report of no bowel movement and very poor urination. Our plans are for observation in the hospital for the followin. Nausea, vomiting with poor oral intake. Ms. Feliciano's report of no urine output and no bowel movements for 9 days is not supported by her labs values or overall clinical picture. She is urinating copious amounts of urine in the emergency room. I do note that she was hydrated well so perhaps there was a component of dehydration that did contribute to decreased urine output as an outpatient, but she is urinating well now. Her abdomen is soft. She is tolerating liquids in the emergency room. She has been drinking water throughout my examination. She does, however, have this abnormality on her CT of the abdomen and our plans will be hydrate her overnight well and to replete her electrolytes including her sodium with normal saline as well as potassium. She has received 40 mEq of p.o. potassium in the emergency department and has not vomited this medication. I have also spoken with Dr. Tovar from Gastroenterology and he will be consulting on the patient and determine any further workup as indicated. The patient will have Zofran available p.r.n. She will have clear liquid only. Her overall clinical picture is unclear based on her description of events, given the nausea, malaise, and elevated CRP, will check a flu swab. 2. Hypertension. The patient takes moexipril at home. Plan to hold this medication during acute illness. 3. Seizure disorder. Continue lamotrigine. 4. Gastroesophageal reflux disease. Continue famotidine. 5. Hyperlipidemia. Continue atorvastatin. 6. Chronic pain with fibromyalgia. Continue OxyContin, oxycodone. 7. DVT prophylaxis with heparin subcu. 8. Code status: Full code. TIME SPENT: Approximately 60 minutes were spent on admission of this patient; more than half time spent with the patient at the bedside reviewing the events leading up to this hospitalization, performing the physical examination and reviewing the plan of care. ISABELLE MEJÍA, EXTRUDER [id number]/[facility] #: [id number] [facility]ENTERNino
--- NOTE | 2017-07-09 03:17 | CONS ---
GASTROENTEROLOGY CONSULTATION DATE: 07/08/17 CONSULTING PHYSICIANS: Erin Boo; Isabelle Mejía NP REASON FOR CONSULTATION: Nausea and vomiting for 9 days and no stool for 6 or 7 evaluated so far with an emergency room visit 07/04/17 and then a followup with her primary 3 days later - seen in the ER with her and daughter Gabbie HISTORY: This 72-year-old woman with history of fibromyalgia and depression and irritable bowel syndrome, comes in complaining of continuing nausea and vomiting. She says that about 8 or 9 days ago, she just started feeling nonspecifically poorly and then 8 days ago began vomiting every day and has eaten next to nothing. She felt she had a head cold and cough (listed in the ER note). The vomiting occurred pretty much every day. She said she had no appetite. She stopped having stools about 6 days ago. She came to the ER on complaining of vomiting, some diarrhea, some nausea, runny nose, sore throat. Her temp was 99.2, blood pressure 190/104. CBC normal. Sodium 135, potassium 3.6, BUN 6, creatinine 0.64. LFTs normal. Urinalysis showed specific gravity of 1.015. She was given some IV fluids and seemed stable and was sent home. She was seen at her primary office [address] Goldman covering for Dr Boo and per the patient and , nothing specific was identified. She spoke to the primary office yesterday and she was encouraged to drink. Today with continued complaints of nausea, not feeling well and no stool, came in. She received Zofran in the emergency room and credits that as the reason that today she has not vomited. In the ER, she has had no fever. Her labs are normal. Two views of the abdomen showed apparent accumulation of gas in the left colon, so a CT scan was done and that raised a question of thickening of the ascending colon near the hepatic flexure. She has had a history of several colonoscopies because of a family history of colon cancer in her younger brother. There was a screening sigmoidoscopy in 1995, colonoscopy and ileoscopy 2000 (by me), colonoscopy by me April 2008 showing diverticulosis and then because of repetitive loose stools, Dr. Villegas did a colonoscopy in April 2010 with random biopsy for microscopic colitis. No colitis was seen. Because of this 2 or 3 years ago when her screening interval came up again, she elected to have Cologuard and that was per her report negative. Her family points out that she has been complaining of having no appetite for number of months, visiting her daughter's house and not eating anything. Nonetheless at her last primary f/u visit (occur every 3 months) 3 weeks ago because of a complaint of weight gain (pt statement in ER), Dr Boo changed her fibromyalgia treatment from Cymbalta to Savella PAST MEDICAL HISTORY: 1. Fibromyalgia. 2. Depression. 3. Anxiety. 4. Status post appendectomy at age 44. 5. Hysterectomy and right salpingo-oophorectomy in 1989. 6. Cystocele and rectocele repair in 2004. Medications - ALLERGIES: Numerous and reviewed enumerated in several notes. Social History - She is to a nursing home and retired from the [employer] system. Her daughter Gabbie is an aix administrator at [employer]. REVIEW OF SYSTEMS: No history of arrhythmia, syncope, AR, cardiac valvular disease, TB, pneumonia, hepatitis, jaundice, renal stones. She takes a baby aspirin and 2 Advil a day though no other NSAIDs. To control her bowels, she takes a glass of MiraLAX, stool softeners, and senna every day. PHYSICAL EXAM: She is an older woman, [id number] overweight, in no overt distress. She is complaining that her voice is not normal because of effects of repetitive vomiting. HEENT exam shows no icterus. She has no adenopathy. Her lungs are clear. Heart sounds are regular. Breast and pelvic exam is deferred. The abdomen is symmetric with normal bowel sounds, generally soft and nontender. Perianal inspection is normal and rectal reveals smooth mucosa and a small amount of mucoid loose brown stool sent for Hemoccult. Extremities show no edema. DIAGNOSTIC STUDIES/LAB DATA: CT review - sagittal views 31 to 35 of 118 did show an area of thickening in the hepatic flexure area. It is smooth and there is no obvious stranding around it. It is considered nonspecific. There is a predominance of gas in the left colon though no small bowel distension Labs - normal. IMPRESSION AND PLAN: This 72-year-old woman presents with a number of symptoms and findings over 8-9 days that do not correlate or coalesce to a single consistent story. While she complaints of nausea and vomiting, she is not dehydrated clinically or per labs. No obstruction is seen on the imaging studies though questions are raised about the colon on CT. The probability of a significant colonic problem is considerably reduced by her having had several colonoscopies in a row (last 2010) and then a negative Cologuard test. Colonoscopy admittedly was more than 7 years ago. It is difficult to know whether the lack of stools is cause or effect. Her CBC is normal though CRP elevated There is also discrepancy in the intermediate term history as regards complaining of having no appetite and not eating and yet changing her fibromyalgia medication because of weight gain. At the moment, the plan will be to observe her, repeat Xrays and consider giving her 3 glasses of MiraLAX if no stool occurs spontaneously and consider an upper endoscopy tomorrow if further observations do not lead to a different plan. Adrenal insufficiency could be considered. [id number]/CPS #: [id number] MTDD
[2017-07-09] MEDS: oxyCODONE SR TAB(*) 10 MG TAB.SR PO SCH ×2 (05:09→16:20)
[2017-07-09] MEDS: Heparin VIAL(*) 5000 UNITS/ML VIAL (FIVE THOUSAND) SUBCUT SCH ×3 (05:10→21:07)
[2017-07-09 06:34] LABS: EGFR Non-African American 108.3 (>60)
--- NOTE | 2017-07-09 08:10 | RAD ---
HISTORY: Nausea, vomiting COMPARISONS: July 08, 2012 VIEWS: Frontal supine and upright views of the abdomen. FINDINGS: BOWEL: There is a nonspecific bowel gas pattern, with nondilated small bowel gas noted. Oral contrast is noted within the colon. CALCULI: There are no abnormal calculi. BONES AND SOFT TISSUES: There is a scoliotic of the spine. Degenerative changes are noted. OTHER FINDINGS: The lung bases are clear. There is no subphrenic gas. IMPRESSION: NONSPECIFIC BOWEL GAS PATTERN. ORAL CONTRAST IS NOTED WITHIN THE COLON.
[2017-07-09] MEDS: Aspirin EC TAB* 81 MG TAB.EC PO SCH (11:00)
[2017-07-09] MEDS: Famotidine TAB* 20 MG PO SCH ×2 (11:00→21:02)
[2017-07-09] MEDS: Atorvastatin* 20 MG TAB PO SCH (11:00)
[2017-07-09] MEDS: lamoTRIgine TAB(*) 100 MG PO SCH ×2 (11:01→21:03)
[2017-07-09] MEDS: MILNACIPRAN 50 MG PO SCH ×2 (11:15→21:11)
[2017-07-09] MEDS: Ondansetron INJ* 2 MG/ML VIAL IV PRN ×2 (12:53→21:47)
[2017-07-09] MEDS ORDERED: MOEXIPRIL HCL 15 MG PO SCH (14:15)
[2017-07-09] MEDS: Polyethylene Glycol 3350* 17 GM PACKET PO SCH ×2 (16:20→16:22)
[2017-07-09] MEDS: Oseltamivir CAP* 75 MG CAP PO SCH (21:03)
--- NOTE | 2017-07-09 22:48 | PN ---
Subjective Date of Service: 07/09/17 Interval History: reports 1 episode of nausea today, denies vomiting or diarrhea, denies abd pain. reports that she is feeling a slight improvement from yesterday. Family History: Unchanged from Admission Social History: Unchanged from Admission Past Medical History: Unchanged from Admission Objective Active Medications: Aspirin (Aspirin Ec Tab*) 81 mg PO DAILY [facility] Last Admin: 07/09/17 11:00 Dose: 81 mg Atorvastatin Calcium (Lipitor*) 20 mg PO DAILY [facility] Last Admin: 07/09/17 11:00 Dose: 20 mg Famotidine (Pepcid Tab*) 20 mg PO BID [facility] Last Admin: 07/09/17 21:02 Dose: 20 mg Heparin Sodium (Porcine) (Heparin Vial(*)) 5,000 units SUBCUT Q8HR [facility] Last Admin: 07/09/17 21:07 Dose: 5,000 units Potassium Chloride/Sodium Chloride (Ns 0.9% W/ 40 Meq Kcl 1000 Ml*) 1,000 mls @ 100 mls/hr IV PER RATE [facility] Last Admin: 07/09/17 16:35 Dose: 100 mls/hr Lamotrigine (Lamictal Tab(*)) 250 mg PO BID [facility] Last Admin: 07/09/17 21:03 Dose: 250 mg Milnacipran HCl (Savella(Nf)) 50 mg PO BID [facility] Last Admin: 07/09/17 21:11 Dose: Not Given Pto Nf Med ( Moexipril Hcl [ Moexipril Hcl] 15 Mg ) 15 mg PO DAILY [facility] Ondansetron HCl (Zofran Inj*) 4 mg IV Q4H PRN PRN Reason: NAUSEA Last Admin: 07/09/17 21:47 Dose: 4 mg Oseltamivir Phosphate (Tamiflu Cap*) 75 mg PO BID [facility] Stop: 07/14/17 09:01 Last Admin: 07/09/17 21:03 Dose: 75 mg Oxycodone HCl (Oxycontin(*)) 30 mg PO Q12H [facility] Last Admin: 07/09/17 16:20 Dose: 30 mg Oxycodone HCl (Roxycodone Tab*) 5 mg PO Q4H PRN PRN Reason: PAIN Polyethylene Glycol/Electrolytes (Miralax*) 17 gm PO BEDTIME [facility] Vital Signs - 8 hr 07/09/17 07/09/17 07/09/17 15:27 16:20 19:44 Temperature 98.7 F 98.0 F Pulse Rate 94 85 Respiratory 16 18 20 Rate Blood Pressure 147/87 179/80 (mmHg) O2 Sat by Pulse 87 99 Oximetry 07/09/17 07/09/17 20:00 20:38 Temperature Pulse Rate Respiratory 20 20 Rate Blood Pressure (mmHg) O2 Sat by Pulse Oximetry Oxygen Devices in Use Now: None Appearance: appears comfortable lying in bed, no acute distress, color pink Eyes: No Scleral Icterus Ears/Nose/Mouth/Throat: Clear Oropharnyx, Mucous Membranes Moist Neck: NL Appearance and Movements; NL JVP, Trachea Midline Respiratory: Symmetrical Chest Expansion and Respiratory Effort, Clear to Auscultation Cardiovascular: NL Sounds; No Murmurs; No JVD, No Edema Abdominal: NL Sounds; No Tenderness; No Distention Extremities: No Edema, No Clubbing, Cyanosis Skin: No Rash or Ulcers Neurological: Alert and Oriented x 3 Nutrition: Taking PO's Result Diagrams: 07/08/17 12:10 07/09/17 05:54 Additional Lab and Data: Lab Results 07/08/17 07/08/17 07/08/17 Range/Units 12:10 12:10 12:10 WBC 5.2 (3.5-10.8) 10^3/ul RBC 5.01 (4.0-5.4) 10^6/ul Hgb 13.7 (12.0-16.0) g/dl Hct 40 (35-47) % MCV 80 (80-97) fL MCH 27 (27-31) pg MCHC 34 (31-36) g/dl RDW 14 (10.5-15) % Plt Count 202 (150-450) 10^3/ul MPV 7.4 (7.4-10.4) um3 Neut % (Auto) 73.1 (38-83) % Lymph % (Auto) 17.7 L (25-47) % [place] % (Auto) 8.9 H (0-7) % Eos % (Auto) 0.1 (0-6) % Baso % (Auto) 0.2 (0-2) % Absolute Neuts (auto) 3.8 (1.5-7.7) 10^3/ul Absolute Lymphs (auto) 0.9 L (1.0-4.8) 10^3/ul Absolute Monos (auto) 0.5 (0-0.8) 10^3/ul Absolute Eos (auto) 0 (0-0.6) 10^3/ul Absolute Basos (auto) 0 (0-0.2) 10^3/ul Absolute Nucleated RBC 0 10^3/ul Nucleated RBC % 0 INR (Anticoag Therapy) (0.77-1.02) APTT (26.0-36.3) seconds Sodium 132 L (139-145) mmol/L Potassium 3.0 L (3.5-5.0) mmol/L Chloride 92 L (101-111) mmol/L Carbon Dioxide 30 (22-32) mmol/L Anion Gap 10 (2-11) mmol/L BUN 4 L (6-24) mg/dL Creatinine 0.63 (0.51-0.95) mg/dL Est GFR ( Amer) 119.1 (>60) Est GFR (Non-Af Amer) 92.6 (>60) BUN/Creatinine Ratio 6.3 L (8-20) Glucose 116 H (70-100) mg/dL Lactic Acid 1.0 (0.5-2.0) mmol/L Calcium 9.8 (8.6-10.3) mg/dL Total Bilirubin 0.60 (0.2-1.0) mg/dL AST 23 (13-39) U/L ALT 19 (7-52) U/L Alkaline Phosphatase 64 (34-104) U/L Troponin I 0.00 (<0.04) ng/mL C-Reactive Protein 87.22 H (< 5.00) mg/L Total Protein 7.3 (6.4-8.9) g/dL Albumin 4.2 (3.2-5.2) g/dL Globulin 3.1 (2-4) g/dL Albumin/Globulin Ratio 1.4 (1-3) Amylase 19 L (29-103) U/L Lipase < 10 L (11.0-82.0) U/L Urine Color Urine Appearance Urine pH (5-9) Ur Specific [place] (1.010-1.030) Urine Protein (Negative) Urine Ketones (Negative) Urine Blood (Negative) Urine Nitrate (Negative) Urine Bilirubin (Negative) Urine Urobilinogen (Negative) Ur Leukocyte Esterase (Negative) Urine WBC (Auto) (Absent) Urine RBC (Auto) (Absent) Ur Squamous Epith Cells (Absent) Urine Bacteria (Absent) Urine Glucose (Negative) 07/08/17 07/08/17 Range/Units 12:10 13:36 WBC (3.5-10.8) 10^3/ul RBC (4.0-5.4) 10^6/ul Hgb (12.0-16.0) g/dl Hct (35-47) % MCV (80-97) fL MCH (27-31) pg MCHC (31-36) g/dl RDW (10.5-15) % Plt Count (150-450) 10^3/ul MPV (7.4-10.4) um3 Neut % (Auto) (38-83) % Lymph % (Auto) (25-47) % [place] % (Auto) (0-7) % Eos % (Auto) (0-6) % Baso % (Auto) (0-2) % Absolute Neuts (auto) (1.5-7.7) 10^3/ul Absolute Lymphs (auto) (1.0-4.8) 10^3/ul Absolute Monos (auto) (0-0.8) 10^3/ul Absolute Eos (auto) (0-0.6) 10^3/ul Absolute Basos (auto) (0-0.2) 10^3/ul Absolute Nucleated RBC 10^3/ul Nucleated RBC % INR (Anticoag Therapy) 0.94 (0.77-1.02) APTT 20.2 L (26.0-36.3) seconds Sodium (139-145) mmol/L Potassium (3.5-5.0) mmol/L Chloride (101-111) mmol/L Carbon Dioxide (22-32) mmol/L Anion Gap (2-11) mmol/L BUN (6-24) mg/dL Creatinine (0.51-0.95) mg/dL Est GFR ( Amer) (>60) Est GFR (Non-Af Amer) (>60) BUN/Creatinine Ratio (8-20) Glucose (70-100) mg/dL Lactic Acid (0.5-2.0) mmol/L Calcium (8.6-10.3) mg/dL Total Bilirubin (0.2-1.0) mg/dL AST (13-39) U/L ALT (7-52) U/L Alkaline Phosphatase (34-104) U/L Troponin I (<0.04) ng/mL C-Reactive Protein (< 5.00) mg/L Total Protein (6.4-8.9) g/dL Albumin (3.2-5.2) g/dL Globulin (2-4) g/dL Albumin/Globulin Ratio (1-3) Amylase (29-103) U/L Lipase (11.0-82.0) U/L Urine Color Straw Urine Appearance Clear Urine pH 7.0 (5-9) Ur Specific [place] 1.003 L (1.010-1.030) Urine Protein Negative (Negative) Urine Ketones Trace A (Negative) Urine Blood 1+ A (Negative) Urine Nitrate Negative (Negative) Urine Bilirubin Negative (Negative) Urine Urobilinogen Negative (Negative) Ur Leukocyte Esterase Trace A (Negative) Urine WBC (Auto) Trace(0-5/hpf) (Absent) Urine RBC (Auto) Trace(0-2/hpf) (Absent) Ur Squamous Epith Cells Present A (Absent) Urine Bacteria Absent (Absent) Urine Glucose Negative (Negative) Assess/Plan/Problems-Billing Assessment: Ms. Feliciano is a 72 y.o female with a history of htn, hld, SZ, and irritable bowel syndrome that presented to the emergency room for evaluation of nasuea and vomiting for 9 days decreased appetite. - Patient Problems (1) Nausea Current Visit: Yes Status: Acute Code(s): R11.0 - NAUSEA SNOMED Code(s): 180224396 Comment: - GI consulted - pending possible endoscopy tomorrow - will continue on a clear liquid diet - Zofran as needed for nasuea - will continue IVF - monitor electrolytes (2) Influenza Current Visit: Yes Status: Acute Code(s): J11.1 - FLU DUE TO UNIDENTIFIED INFLUENZA VIRUS W OTH RESP MANIFEST SNOMED Code(s): 2494853 Comment: - will start tamiflu today -positive for Flu B (3) Hypertension Current Visit: Yes Status: Acute Code(s): I10 - ESSENTIAL (PRIMARY) HYPERTENSION SNOMED Code(s): 94925414 Comment: continue home BP medicaiton (4) DVT prophylaxis Current Visit: Yes Status: Acute Code(s): FIV5140 - SNOMED Code(s): 216345056 Comment: HSQ (5) Full code status Current Visit: Yes Status: Acute Code(s): Z78.9 - OTHER SPECIFIED HEALTH STATUS SNOMED Code(s): 026419247
[2017-07-10] MEDS: NS 0.9% w/ 40 Meq KCL 1000 ML* 1,000 ML IV SCH ×2 (03:32→13:21)
[2017-07-10] MEDS: oxyCODONE SR TAB(*) 10 MG TAB.SR PO SCH ×2 (05:39→17:21)
[2017-07-10] MEDS: Heparin VIAL(*) 5000 UNITS/ML VIAL (FIVE THOUSAND) SUBCUT SCH ×3 (05:41→22:01)
[2017-07-10 06:18] LABS: EGFR Non-African American 115.6 (>60)
[2017-07-10] MEDS: lamoTRIgine TAB(*) 100 MG PO SCH ×2 (08:36→22:01)
[2017-07-10] MEDS: Famotidine TAB* 20 MG PO SCH ×2 (08:36→22:01)
[2017-07-10] MEDS: Aspirin EC TAB* 81 MG TAB.EC PO SCH (08:36)
[2017-07-10] MEDS: Atorvastatin* 20 MG TAB PO SCH (08:36)
[2017-07-10] MEDS: Oseltamivir CAP* 75 MG CAP PO SCH ×2 (08:36→22:01)
[2017-07-10] MEDS: Ondansetron INJ* 2 MG/ML VIAL IV PRN ×2 (08:39→13:27)
[2017-07-10] MEDS: MOEXIPRIL HCL 15 MG PO SCH (09:46)
[2017-07-10] MEDS ORDERED: Midazolam* 1 MG/ML 5 ML VIAL (5 MG) ONE (15:07)
[2017-07-10] MEDS ORDERED: fentaNYL* 50 MCG/ML 2 ML VIAL (100 MCG VIAL) ONE (15:07)
[2017-07-10] MEDS: MILNACIPRAN 50 MG PO SCH ×2 (17:27→22:18)
[2017-07-10] MEDS ORDERED: Magnesium CITRATE* 300 ML BTL PO ONE (17:36)
--- NOTE | 2017-07-10 20:10 | PN ---
Subjective Date of Service: 07/10/17 Interval History: Patient c/o some nausea, no vomiting, denies chest pain or abd pain. denies shortness of breath. denies fever or chills. Family History: Unchanged from Admission Social History: Unchanged from Admission Past Medical History: Unchanged from Admission Objective Active Medications: Aspirin (Aspirin Ec Tab*) 81 mg PO DAILY [facility] Last Admin: 07/10/17 08:36 Dose: 81 mg Atorvastatin Calcium (Lipitor*) 20 mg PO DAILY [facility] Last Admin: 07/10/17 08:36 Dose: 20 mg Famotidine (Pepcid Tab*) 20 mg PO BID [facility] Last Admin: 07/10/17 08:36 Dose: 20 mg Heparin Sodium (Porcine) (Heparin Vial(*)) 5,000 units SUBCUT Q8HR [facility] Last Admin: 07/10/17 17:22 Dose: 5,000 units Potassium Chloride/Sodium Chloride (Ns 0.9% W/ 40 Meq Kcl 1000 Ml*) 1,000 mls @ 100 mls/hr IV PER RATE [facility] Last Admin: 07/10/17 13:21 Dose: 100 mls/hr Lamotrigine (Lamictal Tab(*)) 250 mg PO BID [facility] Last Admin: 07/10/17 08:36 Dose: 250 mg Milnacipran HCl (Savella(Nf)) 25 mg PO BID [facility] Pto Nf Med ( Moexipril Hcl [ Moexipril Hcl] 15 Mg ) 15 mg PO DAILY [facility] Last Admin: 07/10/17 09:46 Dose: 15 mg Ondansetron HCl (Zofran Inj*) 4 mg IV Q4H PRN PRN Reason: NAUSEA Last Admin: 07/10/17 13:27 Dose: 4 mg Oseltamivir Phosphate (Tamiflu Cap*) 75 mg PO BID [facility] Stop: 07/14/17 09:01 Last Admin: 07/10/17 08:36 Dose: 75 mg Oxycodone HCl (Oxycontin(*)) 30 mg PO Q12H [facility] Last Admin: 07/10/17 17:21 Dose: 30 mg Oxycodone HCl (Roxycodone Tab*) 5 mg PO Q4H PRN PRN Reason: PAIN Vital Signs - 8 hr 07/10/17 07/10/17 07/10/17 12:47 16:51 17:06 Temperature 98.7 F 97.5 F 97.5 F Pulse Rate 83 80 80 Respiratory 18 14 14 Rate Blood Pressure 167/97 153/83 153/83 (mmHg) O2 Sat by Pulse 98 99 99 Oximetry 07/10/17 07/10/17 17:21 18:19 Temperature 97.2 F Pulse Rate 90 Respiratory 16 18 Rate Blood Pressure 169/92 (mmHg) O2 Sat by Pulse 100 Oximetry Oxygen Devices in Use Now: None Appearance: appears tired resting in bed, alert and oriented x3 Eyes: No Scleral Icterus Ears/Nose/Mouth/Throat: Clear Oropharnyx, Mucous Membranes Moist Neck: NL Appearance and Movements; NL JVP, Trachea Midline Respiratory: Symmetrical Chest Expansion and Respiratory Effort, Clear to Auscultation Cardiovascular: NL Sounds; No Murmurs; No JVD Abdominal: NL Sounds; No Tenderness; No Distention Skin: No Rash or Ulcers, No Nodules or Sclerosis Neurological: Alert and Oriented x 3 Nutrition: Taking PO's Result Diagrams: 07/08/17 12:10 07/10/17 05:54 Additional Lab and Data: Lab Results 07/08/17 07/08/17 07/08/17 Range/Units 12:10 12:10 12:10 WBC 5.2 (3.5-10.8) 10^3/ul RBC 5.01 (4.0-5.4) 10^6/ul Hgb 13.7 (12.0-16.0) g/dl Hct 40 (35-47) % MCV 80 (80-97) fL MCH 27 (27-31) pg MCHC 34 (31-36) g/dl RDW 14 (10.5-15) % Plt Count 202 (150-450) 10^3/ul MPV 7.4 (7.4-10.4) um3 Neut % (Auto) 73.1 (38-83) % Lymph % (Auto) 17.7 L (25-47) % [place] % (Auto) 8.9 H (0-7) % Eos % (Auto) 0.1 (0-6) % Baso % (Auto) 0.2 (0-2) % Absolute Neuts (auto) 3.8 (1.5-7.7) 10^3/ul Absolute Lymphs (auto) 0.9 L (1.0-4.8) 10^3/ul Absolute Monos (auto) 0.5 (0-0.8) 10^3/ul Absolute Eos (auto) 0 (0-0.6) 10^3/ul Absolute Basos (auto) 0 (0-0.2) 10^3/ul Absolute Nucleated RBC 0 10^3/ul Nucleated RBC % 0 INR (Anticoag Therapy) (0.77-1.02) APTT (26.0-36.3) seconds Sodium 132 L (139-145) mmol/L Potassium 3.0 L (3.5-5.0) mmol/L Chloride 92 L (101-111) mmol/L Carbon Dioxide 30 (22-32) mmol/L Anion Gap 10 (2-11) mmol/L BUN 4 L (6-24) mg/dL Creatinine 0.63 (0.51-0.95) mg/dL Est GFR ( Amer) 119.1 (>60) Est GFR (Non-Af Amer) 92.6 (>60) BUN/Creatinine Ratio 6.3 L (8-20) Glucose 116 H (70-100) mg/dL Lactic Acid 1.0 (0.5-2.0) mmol/L Calcium 9.8 (8.6-10.3) mg/dL Total Bilirubin 0.60 (0.2-1.0) mg/dL AST 23 (13-39) U/L ALT 19 (7-52) U/L Alkaline Phosphatase 64 (34-104) U/L Troponin I 0.00 (<0.04) ng/mL C-Reactive Protein 87.22 H (< 5.00) mg/L Total Protein 7.3 (6.4-8.9) g/dL Albumin 4.2 (3.2-5.2) g/dL Globulin 3.1 (2-4) g/dL Albumin/Globulin Ratio 1.4 (1-3) Amylase 19 L (29-103) U/L Lipase < 10 L (11.0-82.0) U/L Urine Color Urine Appearance Urine pH (5-9) Ur Specific [place] (1.010-1.030) Urine Protein (Negative) Urine Ketones (Negative) Urine Blood (Negative) Urine Nitrate (Negative) Urine Bilirubin (Negative) Urine Urobilinogen (Negative) Ur Leukocyte Esterase (Negative) Urine WBC (Auto) (Absent) Urine RBC (Auto) (Absent) Ur Squamous Epith Cells (Absent) Urine Bacteria (Absent) Urine Glucose (Negative) 07/08/17 07/08/17 Range/Units 12:10 13:36 WBC (3.5-10.8) 10^3/ul RBC (4.0-5.4) 10^6/ul Hgb (12.0-16.0) g/dl Hct (35-47) % MCV (80-97) fL MCH (27-31) pg MCHC (31-36) g/dl RDW (10.5-15) % Plt Count (150-450) 10^3/ul MPV (7.4-10.4) um3 Neut % (Auto) (38-83) % Lymph % (Auto) (25-47) % [place] % (Auto) (0-7) % Eos % (Auto) (0-6) % Baso % (Auto) (0-2) % Absolute Neuts (auto) (1.5-7.7) 10^3/ul Absolute Lymphs (auto) (1.0-4.8) 10^3/ul Absolute Monos (auto) (0-0.8) 10^3/ul Absolute Eos (auto) (0-0.6) 10^3/ul Absolute Basos (auto) (0-0.2) 10^3/ul Absolute Nucleated RBC 10^3/ul Nucleated RBC % INR (Anticoag Therapy) 0.94 (0.77-1.02) APTT 20.2 L (26.0-36.3) seconds Sodium (139-145) mmol/L Potassium (3.5-5.0) mmol/L Chloride (101-111) mmol/L Carbon Dioxide (22-32) mmol/L Anion Gap (2-11) mmol/L BUN (6-24) mg/dL Creatinine (0.51-0.95) mg/dL Est GFR ( Amer) (>60) Est GFR (Non-Af Amer) (>60) BUN/Creatinine Ratio (8-20) Glucose (70-100) mg/dL Lactic Acid (0.5-2.0) mmol/L Calcium (8.6-10.3) mg/dL Total Bilirubin (0.2-1.0) mg/dL AST (13-39) U/L ALT (7-52) U/L Alkaline Phosphatase (34-104) U/L Troponin I (<0.04) ng/mL C-Reactive Protein (< 5.00) mg/L Total Protein (6.4-8.9) g/dL Albumin (3.2-5.2) g/dL Globulin (2-4) g/dL Albumin/Globulin Ratio (1-3) Amylase (29-103) U/L Lipase (11.0-82.0) U/L Urine Color Straw Urine Appearance Clear Urine pH 7.0 (5-9) Ur Specific [place] 1.003 L (1.010-1.030) Urine Protein Negative (Negative) Urine Ketones Trace A (Negative) Urine Blood 1+ A (Negative) Urine Nitrate Negative (Negative) Urine Bilirubin Negative (Negative) Urine Urobilinogen Negative (Negative) Ur Leukocyte Esterase Trace A (Negative) Urine WBC (Auto) Trace(0-5/hpf) (Absent) Urine RBC (Auto) Trace(0-2/hpf) (Absent) Ur Squamous Epith Cells Present A (Absent) Urine Bacteria Absent (Absent) Urine Glucose Negative (Negative) Microbiology and Other Data: Microbiology 07/10/17 15:00 Stool Occult Blood (DARRION) - Final Stool Assess/Plan/Problems-Billing Assessment: Ms. Feliciano is a 72 y.o female with a history of htn, hld, SZ, and irritable bowel syndrome that presented to the emergency room for evaluation of nasuea and vomiting for 9 days decreased appetite. - Patient Problems (1) Nausea Current Visit: Yes Status: Acute Code(s): R11.0 - NAUSEA SNOMED Code(s): 039469396 Comment: - continues to have nausea - GI consulted -endoscopy completed today- small hital hernia - will start bland diet- will assess tolerance in the AM - GI -recommended magnesium citrate 1 bottle 2 hours after dinner and repeat 2 view of the ABD in the AM. - Zofran as needed for nasuea - will continue IVF - monitor electrolytes (2) Influenza Current Visit: Yes Status: Acute Code(s): J11.1 - FLU DUE TO UNIDENTIFIED INFLUENZA VIRUS W OTH RESP MANIFEST SNOMED Code(s): 1916796 Comment: - will contiue tamiflu for 5 days - i suspect that her flu is more acute then when she started having symptoms 10 days ago, as the viral shredding of the flu virus rapidly decreases and is generally not detectable after 5 to 6 days -positive for Flu B (3) Hypertension Current Visit: Yes Status: Acute Code(s): I10 - ESSENTIAL (PRIMARY) HYPERTENSION SNOMED Code(s): 45626559 Comment: continue home BP medicaiton (4) Depression Current Visit: Yes Status: Acute Code(s): F32.9 - MAJOR DEPRESSIVE DISORDER , SINGLE EPISODE, UNSPECIFIED SNOMED Code(s): 02799604 Comment: Patient would like to wean and discontinue savella Spoke to pharmacy who recommended slow taper over 2 to 3 weeks decreasing the dosing by half every 5 to6 days. - will start savella 25mg bid for 6 days today. (5) DVT prophylaxis Current Visit: Yes Status: Acute Code(s): DJU7048 - SNOMED Code(s): 205020265 Comment: HSQ (6) Full code status Current Visit: Yes Status: Acute Code(s): Z78.9 - OTHER SPECIFIED HEALTH STATUS SNOMED Code(s): 285580754 Status and Disposition: discharge home when medically stable
[2017-07-10] MEDS ORDERED: MILNACIPRAN 50 MG PO SCH (21:00)
[2017-07-10] MEDS ORDERED: Polyethylene Glycol 3350* 17 GM PACKET PO SCH (21:00)
[2017-07-11] MEDS: NS 0.9% w/ 40 Meq KCL 1000 ML* 1,000 ML IV SCH ×2 (01:24→13:54)
[2017-07-11 06:17] LABS: Hematocrit 42 % (35-47); Hemoglobin 14.2 g/dl (12.0-16.0); Mean Corpuscular HGB Conc 34 g/dl (31-36); Mean Corpuscular Hemoglobin 27 pg (27-31); Mean Corpuscular Volume 80 fL (80-97); Mean Platelet Volume 6.8 um3 (7.4-10.4); Platelet Count 310 10^3/ul (150-450); Red Blood Count 5.21 10^6/ul (4.0-5.4); Red Cell Distribution Width 14 % (10.5-15); White Blood Count 6.6 10^3/ul (3.5-10.8)
[2017-07-11 06:33] LABS: EGFR Non-African American 94.4 (>60)
[2017-07-11] MEDS: oxyCODONE SR TAB(*) 10 MG TAB.SR PO SCH ×2 (06:48→16:24)
[2017-07-11] MEDS: Heparin VIAL(*) 5000 UNITS/ML VIAL (FIVE THOUSAND) SUBCUT SCH ×3 (06:48→21:16)
--- NOTE | 2017-07-11 09:14 | RAD ---
Indication: Nausea. Comparison: July 09, 2017 abdomen radiograph and July 08, 2017 CT. Technique: Supine and upright views of the abdomen. Report: No radiographic evidence for free air. Negative for small bowel dilatation. The colon is normally distended with residual contrast from the July 08, 2017 CT exam and enteric gas. On the upright view multiple colonic air-fluid levels. No suspicious calcifications or mass effect. Unremarkable soft tissue contours. IMPRESSION: No evidence for bowel obstruction. Liquid contents of colon in part enteric contrast from the July 08, 2017 CT. Negative for colonic dilatation radiographic evidence for wall thickening.
[2017-07-11] MEDS: Famotidine TAB* 20 MG PO SCH ×2 (09:23→21:11)
[2017-07-11] MEDS: Atorvastatin* 20 MG TAB PO SCH (09:23)
[2017-07-11] MEDS: lamoTRIgine TAB(*) 100 MG PO SCH ×2 (09:24→21:12)
[2017-07-11] MEDS: Aspirin EC TAB* 81 MG TAB.EC PO SCH (09:24)
[2017-07-11] MEDS: Oseltamivir CAP* 75 MG CAP PO SCH ×2 (09:24→21:11)
[2017-07-11] MEDS: MOEXIPRIL HCL 15 MG PO SCH (09:25)
[2017-07-11] MEDS: MILNACIPRAN 50 MG PO SCH ×2 (09:25→21:10)
--- NOTE | 2017-07-11 11:26 | PRO ---
DATE: 07/10/17 - ROOM #453 REFERRING PHYSICIAN: Dr. Erin Boo.* PROCEDURE: Upper gastrointestinal endoscopy and CLOtest. INDICATION: This 72-year-old woman with fibromyalgia was admitted 2 days ago with nonspecific malaise, nausea, reduced bowel pattern, and the next day, was found to be nasal swab positive for influenza B. She is nonetheless has been afebrile. Her CRP was up in the emergency room at 87 [address] now is 30[address] CT of the abdomen showed potentially a thickening of the ascending colon and there was gas accumulation on the left side of the colon. Last night, she was given 2 glasses of MiraLAX and today has passed a little bit of gas and a small stool. The overall picture is not coalesced to a single story explaining the majority of the findings. She is aware that if nothing major was found with today's exam , she will be given a bland diet and reassessed tomorrow with abdominal films and labs. ENDOSCOPIST: Dr. Tovar. MEDICATION: Midazolam 8, fentanyl 125. FINDINGS: She is a [id number] overweight older woman in no distress. She is quite anxious. EGD: Larynx - not seen. Esophagus - easily entered and the mucosa is normal in the upper, mid, and lower esophagus with EG junction at 39. There are no erosions. There is a small hiatal hernia. Stomach - generally normal mucosa in the cardia, fundus, body, and antrum. There is a small 4-mm fundic gland polyp in the cardia, not of clinical importance. Otherwise, there are no erosions and no erythema. The CLOtest was taken at the greater curvature. The antrum is normal. Duodenum - pylorus, bulb, and second through fourth portions are normal. IMPRESSION: 1. Small hiatal hernia. 2. Extended illness with malaise, anorexia, some vomiting, and now over the last 48 hours, afebrile, anoretic, and without fecal output. She will be fed and given magnesium citrate and have followup studies tomorrow. [id number]/[facility] #: [id number] [facility]
[2017-07-11] MEDS: Ondansetron INJ* 2 MG/ML VIAL IV PRN ×3 (11:55→21:07)
[2017-07-11] MEDS ORDERED: Prochlorperazine TAB* 10 MG PO PRN (15:58)
[2017-07-12] MEDS: Heparin VIAL(*) 5000 UNITS/ML VIAL (FIVE THOUSAND) SUBCUT SCH (05:30)
[2017-07-12] MEDS ORDERED: oxyCODONE SR TAB(*) 15 MG TAB.SR PO SCH (05:30)
[2017-07-12] MEDS: oxyCODONE SR TAB(*) 10 MG TAB.SR PO SCH (05:34)
[2017-07-12 07:04] LABS: Hematocrit 39 % (35-47); Hemoglobin 13.3 g/dl (12.0-16.0); Mean Corpuscular HGB Conc 34 g/dl (31-36); Mean Corpuscular Hemoglobin 27 pg (27-31); Mean Corpuscular Volume 80 fL (80-97); Mean Platelet Volume 6.8 um3 (7.4-10.4); Platelet Count 297 10^3/ul (150-450); Red Blood Count 4.85 10^6/ul (4.0-5.4); Red Cell Distribution Width 14 % (10.5-15); White Blood Count 5.6 10^3/ul (3.5-10.8)
[2017-07-12] MEDS: Aspirin EC TAB* 81 MG TAB.EC PO SCH (07:36)
[2017-07-12] MEDS: Oseltamivir CAP* 75 MG CAP PO SCH (07:36)
[2017-07-12] MEDS: Atorvastatin* 20 MG TAB PO SCH (07:36)
[2017-07-12] MEDS: Famotidine TAB* 20 MG PO SCH (07:36)
[2017-07-12] MEDS: lamoTRIgine TAB(*) 100 MG PO SCH (07:37)
[2017-07-12] MEDS: MILNACIPRAN 50 MG PO SCH (07:37)
[2017-07-12] MEDS: MOEXIPRIL HCL 15 MG PO SCH (07:39)
[2017-07-12 07:41] VITALS: BP 161/94
--- NOTE | 2017-07-12 22:08 | DS ---
DISCHARGE SUMMARY: DATE OF ADMISSION: 07/08/17 DATE OF DISCHARGE: 07/12/17 DISCHARGE DIAGNOSES: 1. Influenza B. 2. Nausea and vomiting secondary to #1. 3. Narrowing of ascending colon on CT scan. 4. History of hypertension. 5. History of osteoarthritis. 6. History of fibromyalgia. 7. Seizure disorder. 8. History of anxiety and depression. 9. Hiatus hernia on EGD. 10. Irritable bowel syndrome with diarrhea. 11. History of impaired fasting glucose. 12. Menopause, recently on Premarin. 13. History of possible asthma. 14. History of C. diff. HISTORY: The patient is a 72-year-old woman admitted with anorexia, nausea, vomiting. Please see the dictated admission note for details of the present illness, past medical history, family history, social and personal history, review of systems, and physical examination. LABORATORY DATA: CBC: WBC 5.2, H and H 13.7/40, MCV 80, PLT 202,000. CBC remained relatively stable throughout her hospitalization. PT, PTT essentially normal. Chemistries: Sodium 132, potassium 3.0, chloride 92, BUN 4, creatinine 0.63, glucose 116. Rest of the comprehensive metabolic panel was essentially within normal limits. Troponin was 0.00. Amylase and lipase were normal. C- reactive protein was elevated at 87.22. Her potassium was initially low at 3, it was repleted and came up to 3.8 on 07/12/17. CRP came down to 12.94. Phosphorus was slightly low at 2.4, magnesium was normal at 2.5 on 07/11/17. Lactic acid was normal. Urinalysis: Straw clear, specific gravity 1.003, dipsticks positive for blood 1+, trace esterase, micro trace wbc's and rbc's. Influenza A was negative. Influenza B was positive. Stool for occult blood was negative. CLOtest was negative. Urine C and S was negative. IMAGING STUDIES: Abdominal x-ray on 07/08/17 showed nonobstructive bowel gas pattern. Abdominal and pelvis CT on 07/08/17 showed focal mucosal thickening and narrowing of the lumen of the ascending colon. Abdominal x-ray on 07/09/17 showed nonspecific bowel gas pattern with oral contrast noted within the colon. Abdominal x-ray on 07/11/17 showed no obstruction, liquid contents of colon, enteric contrast from 07/08/17, negative for colonic dilatation, radiographic evidence for wall thickening. EKG on 07/08/17 showed sinus rhythm, PVC, probable left atrial enlargement. CONSULTATION: Gastrointestinal consultation, 07/08/17, Dr. Tovar. Dr. Tovar felt that she had nausea and vomiting, not significant dehydration. He did not think that she had a significant colonic problem based on having several colonoscopies in a row and then a negative Cologuard test. He recommended having an upper endoscopy. PROCEDURE REPORT: Endoscopy, 07/10/17, showed small hiatus hernia, negative CLOtest. HOSPITAL COURSE: The patient was admitted and placed on IV fluids. She had occasional vomiting throughout her hospitalization, but as she started to improve, her appetite came back and she started to eat. Her potassium was low, was repleted. She had GI workup as noted above. She was found to be positive for flu. It was felt that she had an unusual presentation of the flu. She was continued on her lamotrigine for her seizure disorder. She was placed on famotidine for gastroesophageal reflux. Her atorvastatin was continued. Her OxyContin and oxycodone were continued. DVT prophylaxis was continued with heparin subcu. She was a full code. On the day following admission, she felt somewhat better and she did continue to improve throughout her hospitalization. Zofran was used as needed. Compazine was ordered as well. IV fluids were given. She had slight cough, this was not severe. This seemed to contribute, however, to her nausea. She was treated for influenza with oseltamivir (Tamiflu ). By 07/11/17, she was anxious to go home, but I felt that she could use 1 more day of hospital care to make sure she was keeping down the Tamiflu. Her IV fluids were discontinued on this day. By 07/12/17, she was feeling better. She had had some small amount of emesis, which she attributed to mucus in the throat. When I saw her, she was eating breakfast, toast and egg. At the time of discharge, it was felt that she has influenza B which is improving. Her nausea and vomiting is improving. Her diarrhea has improved as well. Her blood pressure is still high, we will follow that up as an outpatient. She is to be on a low fat diet. Activity as tolerated. DISCHARGE MEDICATIONS: She is to take: 1. MiraLAX 17 g daily as needed. 2. Aspirin 81 mg daily. 3. Atorvastatin 20 mg daily. 4. Lamotrigine 250 mg twice a day. 5. Savella 50 mg twice a day. 6. Moexipril 15 mg once a day. 7. Tamiflu 75 mg twice a day for 4 more doses starting tonight. 8. OxyContin 30 mg every 12 hours. 9. Oxycodone 5 mg 2 every 4 hours as needed for pain. 10. Ondansetron 4 mg every 4 hours as needed for nausea. FOLLOWUP: She is to follow up with me in 5 to 7 days. [id number]/[facility] #: [id number] BHAVYAD
== END 2017-07-12 12:06 | disposition home or self-care (01) | DRG 866 ==
LOC: ED 10:51 → SSU 14:00 → MEDTELE 07-09 08:25 → OBSVTOIN 07-09 14:00
PROVIDERS: ADMIT Internal Medicine; ATTEND Internal Medicine Geriatric Medicine
PROC: 0DB68ZX Excision of Stomach, Via Natural or Artificial Opening Endoscopic, Diagnostic (ICD-10-PCS; principal; 2017-07-10)
DX: J10.2 Influenza due to other identified influenza virus with gastrointestinal manifestations (principal); E87.1 Hypo-osmolality and hyponatremia; K56.699 Other intestinal obstruction unspecified as to partial versus complete obstruction; I10 Essential (primary) hypertension; E78.5 Hyperlipidemia, unspecified; G40.909 Epilepsy, unspecified, not intractable, without status epilepticus; M79.7 Fibromyalgia; F32.9 Major depressive disorder, single episode, unspecified; E87.6 Hypokalemia; M19.90 Unspecified osteoarthritis, unspecified site; G89.29 Other chronic pain; K21.9 Gastro-esophageal reflux disease without esophagitis; K44.9 Diaphragmatic hernia without obstruction or gangrene; Z80.0 Family history of malignant neoplasm of digestive organs; F41.9 Anxiety disorder, unspecified; Z90.721 Acquired absence of ovaries, unilateral; K57.90 Diverticulosis of intestine, part unspecified, without perforation or abscess without bleeding; K31.7 Polyp of stomach and duodenum; E66.3 Overweight; K58.0 Irritable bowel syndrome with diarrhea; J45.909 Unspecified asthma, uncomplicated; Z79.82 Long term (current) use of aspirin; Z86.19 Personal history of other infectious and parasitic diseases; Z90.710 Acquired absence of both cervix and uterus; Z68.27 Body mass index [BMI] 27.0-27.9, adult; Z88.1 Allergy status to other antibiotic agents; Z88.0 Allergy status to penicillin; Z78.0 Asymptomatic menopausal state; Z88.8 Allergy status to other drugs, medicaments and biological substances; Z88.2 Allergy status to sulfonamides; Z82.49 Family history of ischemic heart disease and other diseases of the circulatory system; Z80.8 Family history of malignant neoplasm of other organs or systems; Z87.891 Personal history of nicotine dependence; Z79.891 Long term (current) use of opiate analgesic
CPT/HCPCS: 36415; 74019; 74177; 80048; 80053; 81003; 81015; 82150; 82272; 83605; 83690; 83735; 84100; 84145; 84484; 85025; 85027; 85610; 85730; 86140; 87077; 87086; 87502; 93005; 99156; 99284; A9270-GY; G0378; J1644; J2250; J2405; J3010; Q0164; Q9967

== ENCOUNTER 2017-07-17 13:54 | Inpatient (IN) | payer MEDICARE, BC ==
[2017-07-17] MEDS ORDERED: NS 0.9% 1000 ML* 1,000 ML IV ONE (14:35)
[2017-07-17 14:47] LABS: Hematocrit 43 % (35-47); Hemoglobin 14.4 g/dl (12.0-16.0); Mean Corpuscular HGB Conc 34 g/dl (31-36); Mean Corpuscular Hemoglobin 28 pg (27-31); Mean Corpuscular Volume 81 fL (80-97); Mean Platelet Volume 7.5 um3 (7.4-10.4); Platelet Count 378 10^3/ul (150-450); Red Blood Count 5.25 10^6/ul (4.0-5.4); Red Cell Distribution Width 14 % (10.5-15); White Blood Count 9.3 10^3/ul (3.5-10.8)
[2017-07-17 15:11] LABS: EGFR Non-African American 78.1 (>60)
[2017-07-17 15:20] LABS: Monocytes % 7 % (0-7)
--- NOTE | 2017-07-17 15:51 | RAD ---
INDICATION: Vomiting COMPARISON: Similar radiograph dated July 11, 2017 TECHNIQUE: Supine and upright views of the abdomen were obtained. FINDINGS: The small bowel and colon appear nondistended. No free intraperitoneal air is seen. There are not the same air-fluid levels seen on today's radiograph that were seen on the most recent abdominal x-ray. No grossly abnormal or pathologic appearing calcifications are noted. Visualized bones are within normal limits for the patient's age. IMPRESSION: Interval resolution of air-fluid levels that were seen on the July 11, 2017 abdominal radiograph on this radiographically normal abdominal x-ray.
[2017-07-17] MEDS ORDERED: Metoclopramide TAB* 10 MG PO ONE (16:38)
[2017-07-17 17:46] LABS: Urine Appearance Clear; Urine Blood 1+ (Negative); Urine Color Straw; Urine Ketones Trace (Negative); Urine Protein Negative (Negative); Urine Specific Gravity 1.002 (1.010-1.030); Urine Urobilinogen Negative (Negative)
[2017-07-17] MEDS ORDERED: cefTRIAXone(*) 1 GM in NS 0.9% 50 ML* 50 ML IVPB ONE (18:06)
[2017-07-17] MEDS ORDERED: KCL 20 MEQ/100 ML IVPREMIX* 20 MEQ/100 ML BAG IV SCH (20:00)
[2017-07-17] MEDS ORDERED: Senna TAB PO PRN (20:04)
[2017-07-17] MEDS ORDERED: NS 0.9% 1000 ML* 1,000 ML IV SCH (20:15)
[2017-07-17] MEDS ORDERED: Docusate CAP* 100 MG PO PRN (20:32)
[2017-07-17] MEDS ORDERED: Polyethylene Glycol 3350* 17 GM PACKET PO PRN (20:32)
[2017-07-17] MEDS ORDERED: Potassium Chloride IV* 60 MEQ in NS 0.9% 500 ML* 500 ML IVPB ONE (21:00)
[2017-07-17] MEDS: hydrALAZINE IV* 20 MG/ML VIAL IV PRN (22:27)
--- NOTE | 2017-07-17 22:49 | HP ---
HISTORY AND PHYSICAL: DATE OF ADMISSION: 07/17/17 ADMITTING PROVIDER: Bucky Pierce MD. PRIMARY CARE PHYSICIAN: Erin Boo MD. CHIEF COMPLAINT: Intractable nausea and vomiting. HISTORY OF PRESENT ILLNESS: Sowmya Feliciano is a 72-year-old female with a past medical history of fibromyalgia, partial seizure disorder, on Lamictal, irritable bowel syndrome, hypertension, hyperlipidemia, depression, with recent 3 weeks of intractable nausea and vomiting, which included an admission between 07/08/17 and 07/12/17 with an associated diagnosis of influenza, which she tolerated some doses of Tamiflu and was receiving IV antiemetics. She states after discharge she has had frequent continued nausea and vomiting episodes including 4 times a day. She has barely been able to keep down any food and has had to cut back on her medications to try to reduce the vomiting. She does attest that she probably has kept down her Lamictal. She was also constipated prior to the last admission for 9 days and was given a large doses of MiraLAX. She has had 1 bowel movement since discharge. She has been referred for admission to the hospitalist service for intractable nausea and vomiting. In the emergency room, she had an abdominal x- ray, which showed resolved air- fluid levels, and was a normal exam. She had a urinalysis with 2+ leukocyte esterase, 1+ bacteria, trace ketones, and 1+ blood, and was started on a dose of ceftriaxone. She was being treated by Dr. Craven over the weekend, prior to admission, with Compazine suppositories and pills after the overlapping with the initial oral Zofran, which did not seem to be working. She denies any fevers or chills. Overall, she feels horrible and has had progressive decline and fatigued for over the last 3 weeks. During last admission, she had an EGD performed with Dr. Tovar, which reportedly showed a small hiatal hernia. She had a negative CLOtest for H. pylori. She, at that time, had a CT of the abdomen and pelvis on 07/08/17, which showed focal mucosal thickening and narrowing of the lumen of the ascending colon. Of note, the patient is on chronic OxyContin 30 mg q.12 for her fibromyalgia, has tolerated this for several years. Prior to this episode, she has been on bowel regimen including MiraLAX, Senokot, and Colace, but has not been able to tolerate the Senokot and , more recently, the Colace. She did have a bowel movement 2 days ago, which did precipitate vomiting. The vomiting is sometimes brought on immediately by food, sometimes with activity or movements. They attest that 3 weeks ago, prior to this vomiting episodes, they went out to eat at [employer], had a meal of steak, mashed potatoes, and [place]. She attests to gluten sensitivity, but not lactose intolerant, in the past. She had a colonoscopy last in 2010 and a Cologuard in the intervening years, Dr. Villegas. Colonoscopy of April 2010 did not show any microscopic colitis on biopsy. Colonoscopy in April 2008 showed diverticulosis. Cologuard was in 2012 or 2013, was reportedly negative. The patient last weighed herself 4 months ago, [address] Tovar's consultation note of 07/08/17, she attests to having several months of poor appetite and then Dr. Boo changed her fibromyalgia treatment from Cymbalta to Savella 3 weeks prior because of weight gain. PAST MEDICAL HISTORY: 1. Partial seizure disorder, well controlled on Lamictal. 2. Hyperlipidemia. 3. Hypertension. 4. Irritable bowel syndrome. 5. Fibromyalgia. 6. Depression. 7. Osteoarthritis. 8. Remote (25 to 30 years ago) history of C. difficile colitis. PAST SURGICAL HISTORY: 1. Appendectomy. 2. Hysterectomy. HOME MEDICATIONS: Includes: 1. Compazine 10 mg p.o. q.6 hours p.r.n. 2. Compazine suppository 25 mg per rectum q.12 hours p.r.n. 3. Moexipril 15 mg p.o. daily. 4. OxyContin 30 mg p.o. q.12 hours. 5. Lamictal 250 mg p.o. b.i.d. 6. Zofran 4 to 8 mg p.o. q.8 hours p.r.n. ODT tabs. 7. Lipitor 20 mg p.o. daily (has stopped recently). 8. Aspirin 81 mg p.o. daily (has stopped recently). SOCIAL HISTORY: The patient smoked for a few years in her childhood. Never a heavy drinker. No other drug use. Medical surrogate is her , Tyler Feliciano , along with Gabbie Soto, her daughter. She lives with Tyler Feliciano. She wishes to be a full code. FAMILY HISTORY: Mother of old age in her 90s. Father of suspected lymphosarcoma, age 42. Sister had cardiac arrest at age 66. REVIEW OF SYSTEMS: A complete 14-point review of systems is negative, except as per HPI. She denies any travel, rashes, abdominal pain. She does occasionally get short of breath with walking up steps or on flat ground. She denies any orthopnea. She never had an echocardiogram. PHYSICAL EXAMINATION GENERAL APPEARANCE: No acute distress, sitting on the hospital bed. VITAL SIGNS: Heart rate 99 to 105, oxygen saturation 96% to 99% on room air, temperature 98.7; blood pressure 184/101 initially, now 164/84. HEENT: Normocephalic, atraumatic. Pupils are equal, round, and reactive to light. Extraocular motions are intact. No cervical lymphadenopathy. Mucous membranes are slightly dry. No oropharynx lesions. NECK: Supple. PULMONARY: Clear to auscultation bilaterally. No wheezing, rales or rhonchi. HEART: Regular rate and rhythm. No murmurs, rubs or gallops. ABDOMEN: Soft, nontender, nondistended. No peritoneal signs. No rebound or guarding. No Foley's sign. EXTREMITIES: Warm and well perfused. No peripheral edema. NEUROLOGIC: Cranial nerves II through XII intact. Moving all extremities. Sensation and strength intact. SKIN: No lesions. No rashes. DIAGNOSTIC STUDIES/LAB DATA: White count 9.3, hemoglobin 14.4, hematocrit 43, platelets 378. Sodium 134, potassium 3.3, chloride 98, carbon dioxide 24, anion gap 12, BUN 4, creatinine 0.73, glucose 121, lactic acid 1.6. AST 18, ALT 17, alk phos 65, CRP 1.3, albumin 4.2, lipase 10. Urinalysis: Specific gravity 1.002, ketones trace, blood 1+, leukocyte esterase 2+, nitrites negative , bacteria 1+. Imaging: Abdominal x-ray demonstrated interval resolution of air-fluid levels, seen on 07/11/17 abdominal radiograph. This radiograph showed normal abdominal x- ray. EKG demonstrated normal sinus rhythm, heart rate 97. QTc 407, normal intervals , normal axis, no ST elevations or depressions. ASSESSMENT AND PLAN: Sowmya Feliciano is a 72-year-old female with past medical history of fibromyalgia, IBS, presenting with 3 weeks of nausea and vomiting thought initially possibly due to influenza, but persisted after treatment and has not been able to be controlled with outpatient Zofran ODT, Compazine tabs, or Compazine suppositories. She is being admitted to observation status for IV hydration, IV antiemetics, GI consult, potential gastric emptying study. The patient also has had report of potential mucosal thickening on CT abdomen and pelvis last admission, may be indicative for a colonoscopy at this point. We will consult Dr. Tovar of GI. Continue IV Zofran alternating with IV Compazine. Consideration for Reglan, though we will wait until after a gastric emptying study. For fibromyalgia, we will continue her OxyContin 30 mg q.12 p.r.n. and restart her Senokot, Colace, and MiraLAX. She says she has never had opioid induced constipation or vomiting in the past. She is hypertensive here. We will continue her or substitute an PRATIMA inhibitor for her moexipril 15 mg. She will be on clear full liquid diet, n.p.o. after midnight for gastric emptying study. Dr. Erni Boo will take over her case tomorrow as she is her primary care provider. Continue IV fluids overnight, 100 cc an hour, normal saline for 12 hours, reevaluate volume status in the morning, get a BMP, add magnesium level. She has potential evidence of urinary tract infection, she was started on ceftriaxone. We will continue that for now. Follow up urine culture. Monitor for any reaction to the antibiotics. She does have a history of penicillin allergy causing some abdominal discomfort. She has tolerated Z- Elijah in the past, but does not know if she tolerated cephalosporins in the past. She remains an observation status. She is a full code. Medical surrogate is Tyler Feliciano and Gabbie Soto. [id number]/[facility] #: [id number] MTDD
[2017-07-17] MEDS: lamoTRIgine TAB(*) 100 MG PO SCH (22:57)
[2017-07-17] MEDS: oxyCODONE SR TAB(*) 10 MG TAB.SR PO SCH (22:59)
[2017-07-18] MEDS: Acetaminophen TAB* 325 MG PO PRN ×3 (00:18→16:19)
[2017-07-18] MEDS: Ondansetron INJ* 2 MG/ML VIAL IV PRN ×2 (04:10→22:46)
[2017-07-18] MEDS: hydrALAZINE IV* 20 MG/ML VIAL IV PRN ×3 (04:18→20:10)
[2017-07-18] MEDS: oxyCODONE SR TAB(*) 10 MG TAB.SR PO SCH ×2 (05:47→17:21)
[2017-07-18] MEDS: Lisinopril TAB* 10 MG PO SCH (08:11)
[2017-07-18] MEDS: Aspirin EC TAB* 81 MG TAB.EC PO SCH (08:11)
[2017-07-18] MEDS: lamoTRIgine TAB(*) 100 MG PO SCH ×2 (08:11→20:10)
--- NOTE | 2017-07-18 11:32 | RAD ---
HISTORY: Nausea and confusion COMPARISONS: December 16, 2013 TECHNIQUE: The following sequences were obtained of the head: Sagittal T1-weighted images, axial T2-weighted images, axial FLAIR images, axial susceptibility weighted images, axial T1-weighted images. Additionally, axial diffusion-weighted images were obtained with calculated apparent diffusion coefficients. FINDINGS: HEMORRHAGE/INFARCT: There is no hemorrhage or acute infarct. MASSES/SHIFT: There is no mass or shift. EXTRA-AXIAL SPACES/MENINGES: There are no extra-axial fluid collections. SULCI AND VENTRICLES: The sulci and ventricles are normal in size and position for the patient's stated age. CEREBRUM: There is multifocal and confluent elevated T2/FLAIR signal in the periventricular and subcortical white matter. This is stable from the previous examination. BRAINSTEM: There are no focal parenchymal abnormalities. CEREBELLUM: There are no focal parenchymal abnormalities. The cerebellar tonsils are normal in size and position. SELLA: The sella is normal. PINEAL: The pineal region is clear. CP ANGLE/TEMPORAL BONES: The labyrinthine structures are grossly normal. VESSELS: Normal flow-voids are noted within the visualized vertebral vasculature. DIFFUSION ABNORMALITIES: There are no diffusion abnormalities. PARANASAL SINUSES/MASTOIDS: The paranasal sinuses are clear. ORBITS: The orbits are unremarkable. BONES AND SOFT TISSUE: No bone or soft tissue abnormalities are noted. OTHER: None IMPRESSION: STABLE MULTIFOCAL WHITE MATTER DISEASE OF THE CEREBRAL HEMISPHERES BILATERALLY. WHILE NONSPECIFIC, THE APPEARANCE IS SUGGESTIVE OF CHRONIC SMALL VESSEL ISCHEMIA.
[2017-07-18] MEDS: Pantoprazole IV* 40 MG IV SCH (12:01)
[2017-07-18] MEDS: oxyCODONE TAB* 5 MG TAB PO PRN ×2 (12:39→20:30)
[2017-07-18] MEDS ORDERED: cefTRIAXone(*) 1 GM in NS 0.9% 50 ML* 50 ML IVPB SCH (16:00)
[2017-07-18] MEDS: Atorvastatin* 20 MG TAB PO SCH (17:22)
--- NOTE | 2017-07-18 23:52 | CONS ---
CC: Erin Boo MD; Gretchen Perez MD * GASTROENTEROLOGY CONSULTATION REPORT: DATE OF CONSULTATION: 07/18/17 HOSPITAL PROVIDER: Bucky Pierce MD PRIMARY CARE PHYSICIAN: Erin Boo MD REASON FOR CONSULT: Intractable nausea and vomiting. HISTORY OF PRESENT ILLNESS: The patient is a 72-year-old female with past medical history of fibromyalgia, depression, IBS with constipation, partial seizure disorder, hypertension, hyperlipidemia who presented with a 3-week history of persistent nausea with frequent episodes of vomiting yesterday. She was last seen here at [facility] between 07/08/17 through 07/12/17 for treatment of influenza. She was given Tamiflu at that time and antiemetics with improvement in her symptoms. An upper endoscopy was performed while she was in the hospital during that admission by Dr. Tovar, on 07/10/17, revealing only a small hiatal hernia. Recommendations were also provided on optimizing her bowel regimen. She is currently on Dulcolax, MiraLAX, and Colace therapy at home and admits to having a very small bowel movement once a week. She states she has a decreased appetite and when she is able to eat something, she throws it up immediately afterwards. Her nausea has remained unproved while admitted to the hospital with alternating Zofran and Compazine. She does admit to improvement in her vomiting. She denies abdominal pain, but does admit to intermittent bloating. She denies rectal bleeding. She has admitted to approximately 10-pound weight loss over the last 3 weeks due to poor appetite, nausea and vomiting. Of note, her last colonoscopy was in [address] Villegas and was normal at that time. Since then, she has been getting Cologuard testing which have been reportedly negative since then. She denies history of dysphagia and hematemesis. PAST MEDICAL HISTORY: 1. Partial seizure disorder. 2. Hyperlipidemia. 3. Hypertension. 4. Irritable bowel syndrome with constipation. 5. Fibromyalgia. 6. Depression. 7. Osteoarthritis. 8. Distant history of C. difficile colitis. PAST SURGICAL HISTORY: 1. Appendectomy. 2. Hysterectomy. HOME MEDICATIONS: 1. Compazine 10 mg p.o. every 4-6 hours prn. 2. Compazine suppository 25 mg per rectum, every 4-6 hours prn. 3. Moexipril. 4. OxyContin. 5. Lamictal. 6. Zofran. 7. Lipitor. 8. Aspirin 81 mg daily. FAMILY HISTORY: Mother in her 90s. Father with lymphosarcoma at age 42 and . Sister with cardiac arrest at 66. SOCIAL HISTORY: No previous history of drug use. No current tobacco use or alcohol use. REVIEW OF SYSTEMS: On a 14-point scale has been reviewed. All pertinent positives and negatives have been noted above in the HPI. PHYSICAL EXAMINATION: General: Alert, awake, oriented x3, in no acute distress. HEENT: Normocephalic, atraumatic. Extraocular muscles intact. Anicteric sclerae bilaterally. Neck is supple. Pulmonary: Clear to auscultation bilaterally. No wheezes, rhonchi, or rales. Heart: Regular rate and rhythm. No murmurs, rubs, gallops, or clicks. Abdomen: Soft, nontender, nondistended. No rebound, guarding, or rigidity. Extremities: No clubbing, cyanosis, or edema. Neurological Exam: Cranial nerves II through XII are intact. No gross deficits are appreciated. DIAGNOSTIC STUDIES/LAB DATA: WBC 9.3, hemoglobin 14.4, hematocrit 43, platelets 378,000. Sodium 134, potassium 3.3, chloride 98, CO2 of 24, anion gap 12, BUN 4, creatinine 0.73, lactic acid 1.6, calcium 10.0, magnesium 2.3, total bilirubin 0.80, AST 18, ALT 17, alkaline phosphatase 65, CRP 1.29, total protein 7.2, albumin 4.2, lipase 10. ASSESSMENT AND PLAN: Sowmya is a pleasant 72-year-old female with a past medical history of fibromyalgia, depression, irritable bowel syndrome with constipation who presented to [facility] yesterday with intractable nausea, vomiting. She was recently diagnosed with the flu 3 weeks ago and since then has been having persistent nausea with frequent episodes of vomiting. She was placed on Compazine and Zofran for home; however, these did not alleviate her symptoms. She was thus admitted to the hospital for observation for IV fluid hydration and antiemetics. Since admission, she has been feeling slightly better. She admits to persistent nausea but her vomiting has improved. She does occasionally admit to bloating. She does have a history of constipation. Over the last 3 weeks she has become more constipated and is having only a small bowel movement every week. She also admits to a 10-pound weight loss due to change in appetite. She is currently on MiraLAX, Colace and Dulcolax. An EGD was performed by Dr. Tovar earlier this month and revealed a small hiatal hernia. She had a negative CLOtest. Her symptoms may be related to or a combination of post-infectious gastroparesis versus gastritis versus narcotic use for her fibromyalgia versus opioid-induced constipation. Etiology may be a combination of the differential diagnoses. Currently, she is on clear liquids and is tolerating these. She will be kept n.p.o. after midnight for a gastric emptying study in the morning. Once she is able to tolerate oral medications and liquids, we can treat her for her constipation. She may be a candidate for Relistor for opioid-induced constipation, which may be contributing to her persistent nausea but it is unclear at this time. I would recommend pantoprazole 40 mg IV daily for now for possible gastritis. A trial of carafate may also be considered once she is able to tolerate clear liquids without emesis but would prefer to stay away from adding more medications to her regimen. Colonoscopy can be considered for recent CT imaging performed on 07/08/17, revealing focal mucosal thickening and narrowing of the lumen in the ascending colon. These findings could be related to her constipation and possible stool burden. However, she will be unable to tolerate a preparation at this time due to her persistent nausea, vomiting. This can be done as an outpatient once these symptoms have improved. We will await results of gastric emptying study and make recommendations as the patient' s clinical course progresses. Thank you, Dr. Pierce, for allowing us to participate in the care of your patient. If you should have any further questions or concerns, please do not hesitate to contact us. [id number]/[facility] #: [id number] STEPHIE
[2017-07-19] MEDS: oxyCODONE SR TAB(*) 10 MG TAB.SR PO SCH ×3 (05:42→18:14)
[2017-07-19] MEDS: Ondansetron INJ* 2 MG/ML VIAL IV PRN ×2 (05:48→20:04)
[2017-07-19 06:10] LABS: Hematocrit 39 % (35-47); Hemoglobin 13.2 g/dl (12.0-16.0); Mean Corpuscular HGB Conc 34 g/dl (31-36); Mean Corpuscular Hemoglobin 27 pg (27-31); Mean Corpuscular Volume 80 fL (80-97); Mean Platelet Volume 7.5 um3 (7.4-10.4); Platelet Count 333 10^3/ul (150-450); Red Blood Count 4.82 10^6/ul (4.0-5.4); Red Cell Distribution Width 14 % (10.5-15); White Blood Count 10.3 10^3/ul (3.5-10.8)
[2017-07-19 06:19] LABS: EGFR Non-African American 96.1 (>60)
--- NOTE | 2017-07-19 10:17 | RAD ---
INDICATION: Intractable nausea and vomiting. Comparison: Comparison is made with a prior abdominal series from July 17, 2017. Technique: The patient was given an intravenous injection of 1.1 mCi of technetium 99m sulfur colloid mixed with oatmeal. Multiple images of the left upper quadrant were obtained. FINDINGS: There is normal distribution of radiopharmaceutical. The stomach appeared to empty normally. The half-time for emptying was 41 minutes which is within normal limits. IMPRESSION: NORMAL STUDY.
--- NOTE | 2017-07-19 10:55 | ED ---
Miguel Angel Garcia Julia, scribed for Yao Hoffman MD on 07/17/17 at 1420 . Complex/Multi-Sys Presentation - HPI Summary HPI Summary: This patient is a 72 year old F BIBA to [facility] accompanied by her daughter with a chief complaint of vomiting for the past three weeks. Pt reports vomiting once or twice a day and decrease PO intake and appetite. Patient denies CP, SOB , and urinary symptoms. Her daughter reports unsteady gait. Her daughter reports that she has been in and out of the hospital. Daughter states the first admission in June of 2017 was due to dehydration. She states she was admitted again on 07/08/17. She states a CT scan was performed that revealed intestinal wall thicken, as per radiologist. She states Dr. Tovar disagreed as previous colonoscopies were negative and recent GI scope was normal. - History Of Current Complaint Chief Complaint: EDNauseaVomitDiarrh Time Seen by Provider: 07/17/17 14:00 Hx Obtained From: Patient, Family/Ward Aide Onset/Duration: Lasting Weeks, Still Present Timing: Constant Location: Negative Associated Signs And Symptoms: Positive: Vomiting, Decreased Oral Intake, Other. Negative: SOB, Chest Pain, Dysuria Related History: Recent Hospitalization - Allergies/Home Medications Allergies/Adverse Reactions: Allergies Allergy/AdvReac Type Severity Reaction Status Date / Time amoxicillin [From Augmentin] Allergy , abd pain Verified 07/17/17 14:05 carisoprodol [From Soma] Allergy Dizziness Verified 07/17/17 14:05 celecoxib [From Celebrex] Allergy GI bleed Verified 07/17/17 14:05 cephalexin [From Keflex] Allergy intestinal Verified 07/17/17 14:05 infection clavulanic acid Allergy , abd pain Verified 07/17/17 14:05 [From Augmentin] montelukast [From Singulair] Allergy GI Upset Verified 07/17/17 14:05 nabumetone [From Relafen] Allergy Diarrhea Verified 07/17/17 14:05 Penicillins Allergy bloody Verified 07/17/17 14:05 diarrhea rofecoxib [From Vioxx] Allergy elevated Verified 07/17/17 14:05 blood pressure Sulfa (Sulfonamide Allergy bloody Verified 07/17/17 14:05 Antibiotics) diarrhea sulfamethoxazole Allergy Abdominal Verified 07/17/17 14:05 [From ] Pain trimethoprim [From ] Allergy Abdominal Verified 07/17/17 14:05 Pain Home Medications: Home Medications Moexipril (NF) [Univasc (NF)] 15 mg PO DAILY 07/17/17 [History Confirmed ] Ondansetron ODT TAB* [Zofran 4 MG Odt TAB*] 4 - 8 mg PO Q8H PRN 07/17/17 [ History Confirmed 07/17/17] Prochlorperazine SUPP* [Compazine Supp*] 25 mg GA Q12H PRN 07/17/17 [History Confirmed 07/17/17] Prochlorperazine TAB* [Compazine Tab*] 10 mg PO Q6H PRN 07/17/17 [History Confirmed 07/17/17] PMH/Surg Hx/FS Hx/Imm Hx Endocrine/Hematology History: Denies: Hx Diabetes Cardiovascular History: Reports: Hx Hypertension History: Denies: Hx Renal Disease Musculoskeletal History: Reports: Hx Arthritis - osteoartheritis, Hx Back Problems Sensory History: Reports: Hx Contacts or Glasses Denies: Hx Hearing Aid Opthamlomology History: Reports: Hx Contacts or Glasses Neurological History: Reports: Hx Seizures Psychiatric History: Reports: Hx Anxiety, Hx Depression - Cancer History Hx Chemotherapy: No Hx Radiation Therapy: No - Surgical History Surgery Procedure, Year, and Place: HYSTERECTOMY 1989. EYE SURGERY A CHILD. TONSILS. APPENDECTOMY Hx Anesthesia Reactions: No Infectious Disease History: No Infectious Disease History: Denies: Traveled Outside the [place] in Last 30 Days - Family History Known Family History: Positive: Cardiac Disease Negative: Diabetes - Social History Alcohol Use: None Substance Use Type: Reports: None Smoking Status (MU): Former Smoker Review of Systems Negative: Fever, Chills Negative: Erythema Negative: Sore Throat Negative: Chest Pain Negative: Shortness Of Breath, Cough Gastrointestinal: Other - decreased PO intake and appetite Positive: Vomiting. Negative: Abdominal Pain Negative: dysuria, hematuria Negative: Myalgia, Edema Negative: Rash Neurological: Negative - dizziness Positive: Weakness - unsteady gait All Other Systems Reviewed And Are Negative: Yes Physical Exam - Summary Physical Exam Summary: Constitutional: Well-developed, Well-nourished, Alert. (-) Distressed Skin: Warm, Dry HENT: Normocephalic; Atraumatic Eyes: Conjunctiva normal Neck: Musculoskeletal ROM normal neck. (-) JVD, (-) Stridor, (-) Tracheal deviation Cardio: Rhythm regular, rate normal, Heart sounds normal; Intact distal pulses; The pedal pulses are 2+ and symmetric. Radial pulses are 2+ and symmetric. (-) Murmur Pulmonary/Chest wall: Effort normal. (-) Respiratory distress, (-) Wheezes, (-) Rales Abd: Soft, (-) Tenderness, (-) Distension, (-) Guarding, (-) Rebound Musculoskeletal: (-) Edema Lymph: (-) Cervical adenopathy Neuro: Alert, Oriented x3 Psych: Mood and affect Normal Triage Information Reviewed: Yes Vital Signs On Initial Exam: Initial Vitals Temp Pulse Resp BP Pulse Ox 98.7 F 99 18 184/101 97 07/17/17 14:02 07/17/17 14:02 07/17/17 14:02 07/17/17 14:02 07/17/17 14:02 Vital Signs Reviewed: Yes Diagnostics - Vital Signs Vital Signs Temp Pulse Resp BP Pulse Ox 07/17/17 14:02 98.7 F 99 18 184/101 97 - Laboratory Result Diagrams: 07/17/17 14:35 07/17/17 14:35 Lab Statement: Any lab studies that have been ordered have been reviewed, and results considered in the medical decision making process. - Radiology Abdomen XR Radiology Interpretation Completed By: Radiologist - Interval resolution of air- fluid levels that were seen on the July 11, 2017 abdominal radiograph on this radiographically normal abdominal x-ray. ED Physician has reviewed this report. - EKG 1451 Cardiac Rate: NL - at 97 BPM EKG Rhythm: Sinus Rhythm EKG Interpretation: no STEMI Complex Multi-Symp Course/Dx Assessment/Plan: This patient is a 72 year old F BIBA to [facility] accompanied by her daughter with a chief complaint of vomiting for the past three weeks. Pt reports vomiting once or twice a day and decrease PO intake and appetite. Patient denies CP, SOB, and urinary symptoms. Her daughter reports unsteady gait. Her daughter reports that she has been in and out of the hospital. Daughter states the first admission in June of 2017 was due to dehydration. She states she was admitted again on 07/08/17. She states a CT scan was performed that revealed intestinal wall thicken, as per radiologist. She states Dr. Tovar disagreed as previous colonoscopies were negative and recent GI scope was normal. [1815] Dr. Pierce (hospitalist) agrees to admit pt. In the ED course, pt was given Rocephin, IV fluids, and Reglan. Pt is stable and will be admitted with Dx of vomiting and UTI. Pt understands and agrees with this plan. - Diagnoses Provider Diagnoses: Vomiting, UTI (urinary tract infection) - Physician Notifications Discussed Care Of Patient With: Bucky Pierce - Hospitalist Time Discussed With Above Provider: 18:15 Instructed by Provider To: Admit As Inpatient Discharge - Sign-Out/Discharge Documenting (check all that apply): Discharge - admit - Discharge Plan Condition: Stable Disposition: ADMITTED TO [facility] Referrals: Erin Boo MD [Primary Care Provider] - The documentation as recorded by the Miguel Angel pickard Julia accurately reflects the service I personally performed and the decisions made by , Yao Hoffman MD.
[2017-07-19] MEDS: Lisinopril TAB* 10 MG PO SCH (11:12)
[2017-07-19] MEDS: Aspirin EC TAB* 81 MG TAB.EC PO SCH (11:13)
[2017-07-19] MEDS: Pantoprazole IV* 40 MG IV SCH (11:13)
[2017-07-19] MEDS: lamoTRIgine TAB(*) 100 MG PO SCH ×2 (11:13→20:04)
[2017-07-19] MEDS: Potassium Chlor TAB* 20 MEQ TAB.ER PO SCH ×3 (13:11→20:04)
--- NOTE | 2017-07-19 13:20 | RAD ---
HISTORY: Nausea COMPARISONS: CT dated July 08, 2017 TECHNIQUE: Multiple transverse and longitudinal ultrasound images were obtained of the right upper quadrant of the abdomen using grayscale and color Doppler imaging. FINDINGS: LIVER: The liver is normal in shape, size, contour, and echogenicity. There are no focal parenchymal masses. There is normal hepatopedal flow of the portal vein on Doppler imaging. BILIARY TREE: There is no intrahepatic or extrahepatic biliary dilatation. The common duct measures 0.6 cm. GALLBLADDER: The gallbladder is well-visualized. There is no cholelithiasis, gallbladder wall thickening, pericholecystic fluid, or sonographic Foley sign. PANCREAS: The head of the pancreas is unremarkable. The tail of the pancreas is not well visualized secondary to overlying bowel gas. RIGHT KIDNEY: The right kidney is normal in shape, size, contour, and echogenicity. There is no hydronephrosis or nephrolithiasis. The right kidney measures 12 x 4.9 x 5.1 cm. AORTA AND IVC: The aorta and IVC are unremarkable. FLUID: There are no pleural effusions. There is no free fluid within the hepatorenal recess. OTHER FINDINGS: None. IMPRESSION: NO ACUTE SONOGRAPHIC PATHOLOGY OF THE VISUALIZED PORTION OF THE ABDOMEN.
[2017-07-19 15:48] LABS: Urine Appearance Clear; Urine Blood 1+ (Negative); Urine Color Yellow; Urine Ketones Trace (Negative); Urine Protein Negative (Negative); Urine Specific Gravity 1.009 (1.010-1.030); Urine Urobilinogen Negative (Negative)
[2017-07-19] MEDS: oxyCODONE TAB* 5 MG TAB PO PRN ×2 (16:08→20:14)
[2017-07-19] MEDS: Atorvastatin* 20 MG TAB PO SCH (18:15)
[2017-07-19] MEDS: Acetaminophen TAB* 325 MG PO PRN (20:19)
[2017-07-20] MEDS: Potassium Chlor TAB* 20 MEQ TAB.ER PO SCH (00:24)
[2017-07-20] MEDS: oxyCODONE SR TAB(*) 10 MG TAB.SR PO SCH ×2 (05:49→18:17)
[2017-07-20 06:09] LABS: Hematocrit 39 % (35-47); Hemoglobin 13.4 g/dl (12.0-16.0); Mean Corpuscular HGB Conc 34 g/dl (31-36); Mean Corpuscular Hemoglobin 28 pg (27-31); Mean Corpuscular Volume 80 fL (80-97); Mean Platelet Volume 7.2 um3 (7.4-10.4); Platelet Count 314 10^3/ul (150-450); Red Blood Count 4.87 10^6/ul (4.0-5.4); Red Cell Distribution Width 14 % (10.5-15); White Blood Count 6.8 10^3/ul (3.5-10.8)
[2017-07-20 06:27] LABS: EGFR Non-African American 94.4 (>60)
[2017-07-20] MEDS: Aspirin EC TAB* 81 MG TAB.EC PO SCH (08:08)
[2017-07-20] MEDS: lamoTRIgine TAB(*) 100 MG PO SCH ×2 (08:09→20:07)
[2017-07-20] MEDS: Lisinopril TAB* 10 MG PO SCH (08:10)
[2017-07-20] MEDS: Ondansetron INJ* 2 MG/ML VIAL IV PRN ×3 (08:15→18:19)
[2017-07-20] MEDS: Pantoprazole IV* 40 MG IV SCH (08:15)
[2017-07-20] MEDS: Polyethylene Glycol 3350* 17 GM PACKET PO SCH (11:15)
--- NOTE | 2017-07-20 17:53 | PN ---
Progress Note - Progress Note Date of Service: 07/20/17 - Gastroenterology Note: Patient seen and examined. Ate a full breakfast this am but vomited it up later. She subsequently ate a full lunch and no emesis yet. No abdominal pain. Nausea has improved. Ambulated with PT today to door and back to bed. Vital Signs: Temp Pulse Resp BP Pulse Ox 98.1 F 111 16 150/85 99 07/20/17 15:57 07/20/17 15:57 07/20/17 15:57 07/20/17 15:57 07/20/17 15:57 Physical Examination: GENERAL: NAD. CV: RRR. PULM: CTAB. ABDOMEN: Soft, Mild ttp in RLQ and LLQ. Laboratory Results - last 24 hr 07/20/17 07/20/17 06:01 06:01 WBC 6.8 RBC 4.87 Hgb 13.4 Hct 39a MCV 80 MCH 28 MCHC 34 RDW 14 Plt Count 314 MPV 7.2 L Sodium 136 L Potassium 3.5 Chloride 104 Carbon Dioxide 24 Anion Gap 8 BUN 4 L Creatinine 0.62 Est GFR ( Amer) 121.3 Est GFR (Non-Af Amer) 94.4 BUN/Creatinine Ratio 6.5 L Glucose 110 H Calcium 9.5 Magnesium 2.3 C-Reactive Protein 4.70 Lipase 18 A/P: 72 YO female with depression, fibromylagia, IBS-C who presented with persistent nausea/emesis after recent treatment for influenza 3 weeks ago. GES and abdominal US was normal. CBC and CMP have been normal. She was able to tolerate lunch today. Currently on Zofran and Compazine prn. Miralax was started for further treatment of constipation. 1. Persistent nausea/emesis - improving. ~EGD revealed small hiatal hernia. Clotest was negative. ~CT A/P on previous admission ruled out an acute upper GI process. ~Abdominal US and GES was negative. ~Labs are normal. ~Symptoms are likely related to chronic narcotic use and opoid induced constipation along with underlying depression. ~Recommend minimizing narcotics is possible. ~Recommend small frequent meals. ~On pantoprazole 40 mg IV daily for possible gastritis. 2. Constipation ~Likely opioid-induced with underlying IBS-C. ~May increase Miralax to one packet BID if needed. Currently on senna and colace as well. ~Recommend patient to follow-up as outpatient to optimize bowel regimen. D/w family at bedside. Gretchen Perez D.O.
[2017-07-20] MEDS: Atorvastatin* 20 MG TAB PO SCH (18:17)
[2017-07-20] MEDS: Senna TAB PO SCH (20:07)
[2017-07-20] MEDS: Docusate CAP* 100 MG PO SCH (20:08)
[2017-07-21] MEDS: Ondansetron INJ* 2 MG/ML VIAL IV PRN (05:08)
[2017-07-21] MEDS: oxyCODONE SR TAB(*) 10 MG TAB.SR PO SCH ×2 (05:08→17:15)
[2017-07-21 07:36] LABS: EGFR Non-African American 79.4 (>60)
[2017-07-21] MEDS: PROCHLORPERAZINE INJ 5 MG/ML 2 ML VIAL IV PRN ×2 (08:17→17:15)
[2017-07-21] MEDS: Pantoprazole IV* 40 MG IV SCH (08:18)
[2017-07-21] MEDS: Senna TAB PO SCH ×2 (08:25→20:41)
[2017-07-21] MEDS: lamoTRIgine TAB(*) 100 MG PO SCH ×2 (08:25→20:40)
[2017-07-21] MEDS: Docusate CAP* 100 MG PO SCH ×2 (08:25→20:41)
[2017-07-21] MEDS: Lisinopril TAB* 10 MG PO SCH (08:25)
[2017-07-21] MEDS: Aspirin EC TAB* 81 MG TAB.EC PO SCH (08:25)
--- NOTE | 2017-07-21 12:37 | PN ---
Progress Note - Progress Note Date of Service: 07/21/17 - Gastroenterology Note: Came to see patient but was in nuclear medicine getting her HIDA scan. Spoke with patient's and [id number] at bedside. They described that patient was feeling much better and tolerating her diet. No nausea/emesis last night. Had some abdominal discomfort thus HIDA was ordered. No fevers/chills. No bowel movement last night. Will await HIDA results. No new labs to be reviewed. Recommend increasing Miralax to BID for now. She may qualify for Relistor for opioid-induced constipation or Linzess for IBS-C. Upon discharge she will need a follow-up in our office in 1-[address] Boo to discuss recommendations. Gretchen Perez D.O.
[2017-07-21] MEDS: Polyethylene Glycol 3350* 17 GM PACKET PO SCH (15:02)
--- NOTE | 2017-07-21 16:19 | RAD ---
INDICATION: Right upper quadrant pain. COMPARISON: Abdominal ultrasound dated July 19, 2017 at did not reveal any sonographically apparent abnormalities of the gallbladder TECHNIQUE: Following the administration of 6.48 millicuries of technetium 99m mebrofenin, serial, static, anterior images of the abdomen were obtained at 5 minute increments for a period of one hour. The patient was experiencing nausea and recent emesis prior to the exam and therefore administration of CCK was deferred to avoid exacerbating emesis. FINDINGS: There is prompt uptake of radiopharmaceutical within the liver indicating normal hepatic function. There is prompt visualization of the gallbladder and small bowel indicating patency of the cystic and common ducts. At the 2 1/2 hour delay there is trace amount of radiotracer in the proximal small bowel. Images were acquired 4 hours postinjection and there is radiographic contrast seen throughout the bowel. IMPRESSION: No scintigraphic evidence of acute cholecystitis or cystic duct obstruction. Administration of CCK was deferred as the patient was nauseous and had recently experienced emesis prior to the exam
[2017-07-21] MEDS: Atorvastatin* 20 MG TAB PO SCH (17:15)
[2017-07-21] MEDS: Acetaminophen TAB* 325 MG PO PRN (20:39)
[2017-07-21] MEDS: oxyCODONE TAB* 5 MG TAB PO PRN (20:40)
[2017-07-21] MEDS: Potassium Chlor TAB* 20 MEQ TAB.ER PO SCH (20:41)
[2017-07-22] MEDS: oxyCODONE SR TAB(*) 10 MG TAB.SR PO SCH (05:54)
[2017-07-22] MEDS: Lisinopril TAB* 10 MG PO SCH (08:00)
[2017-07-22 08:01] VITALS: BP 144/87
[2017-07-22 08:01] LABS: EGFR Non-African American 78.1 (>60)
[2017-07-22] MEDS: lamoTRIgine TAB(*) 100 MG PO SCH (08:01)
[2017-07-22] MEDS: Aspirin EC TAB* 81 MG TAB.EC PO SCH (08:02)
[2017-07-22] MEDS: Polyethylene Glycol 3350* 17 GM PACKET PO SCH (08:02)
[2017-07-22] MEDS: Potassium Chlor TAB* 20 MEQ TAB.ER PO SCH (08:02)
[2017-07-22] MEDS: Senna TAB PO SCH (08:02)
[2017-07-22] MEDS: Docusate CAP* 100 MG PO SCH (08:02)
[2017-07-22] MEDS: oxyCODONE TAB* 5 MG TAB PO PRN (08:11)
[2017-07-22] MEDS: Pantoprazole IV* 40 MG IV SCH (08:14)
[2017-07-22] MEDS: PROCHLORPERAZINE INJ 5 MG/ML 2 ML VIAL IV PRN (08:14)
--- NOTE | 2017-07-22 14:00 | DS ---
CC: [facility] * DISCHARGE SUMMARY: DATE OF ADMISSION: 07/17/17 DATE OF DISCHARGE: 07/22/17 DISCHARGE DIAGNOSES: 1. Nausea, etiology is uncertain. 2. Constipation. 3. Recent influenza B. 4. History of hypertension. 5. History of osteoarthritis. 6. History of fibromyalgia. 7. Seizure disorder. 8. History of anxiety and depression. 9. Hiatus hernia on EGD. 10. History of irritable bowel syndrome. 11. History of impaired fasting glucose. 12. Menopause. 13. History of possible asthma. 14. Remote history of Clostridium difficile. 15. Hypokalemia. HISTORY: Sowmya Feliciano is a 72-year-old woman admitted with nausea and vomiting. She had been hospitalized recently with the same symptoms and was positive for influenza B. Her CRP had come down during that hospitalization (07/08/17 to 08/24). She received Tamiflu during that admission. She finishee it after discharge. Please see the dictated admission note for details of the history of present illness, past medical history, family history, social and personal history, review of systems, and physical examination. DIAGNOSTIC STUDIES/LAB DATA: CBC: WBC 9.3, H and H 14.4/43, MCV 81, PLT 378K. CBC on 07/20/17 was WBC 6.8, H and H 13.4/39, MCV 80, PLT 314K. Chemistry: Sodium 134, potassium 3.3, chloride 98, CO2 of 24, BUN and creatinine 4/0.73, glucose 121. Rest of her comprehensive metabolic panel is within limits. Lipase is normal at 10. Repeat lipase on 07/20/17 was 18. Potassium went down as low as 3 on 07/19/17, was 3.5 on 07/20/17, 3.3 on 07/21/17, and 3.3 on . CRPs were on 07/17/17, 1.29; on 07/19/17, 4.73; on 07/20/17, 4.70 (within normal limits). Blood sugars were in the 110 to 135 range. Urinalysis: Straw , clear, specific gravity 1.002, dipsticks positive for 1+ blood, 2+ esterase, squamous epithelial cells present, bacteria 1+, pH was 7. Repeat urinalysis on 07/19/17: Yellow, clear, specific gravity 1.009, pH of 6, dipsticks positive for 1+ blood, trace wbc's and rbc's, squamous epithelial cells present, bacteria absent. Urine culture was no growth, 07/17/17 and 07/19/17. Imaging: Abdominal x-ray on 07/17/17 showed interval resolution of air-fluid levels that were seen on 07/11/17 that was felt to be normal. Brain MRI on 07/18/17 showed stable multifocal white matter disease in the cerebral hemispheres bilaterally suggestive of chronic small vessel ischemia. Abdominal ultrasound on 07/19/17 showed no acute sonographic pathology in the visualized portion of the abdomen, which was the right upper quadrant. Gastric emptying study, 07/19/17, showed normal gastric emptying. Hepatobiliary scan on 07/21/17 showed no scintigraphic evidence of acute cholecystitis or cystic duct obstruction. Administration of CCK was deferred as the patient was nauseated and had recent experience of emesis prior to the exam. EKG on 07/17/17 showed sinus rhythm, probable left atrial enlargement with secondary repolarization abnormality, LVH criteria, abnormal ST-T wave changes. CONSULTATION REPORT: Gastroenterology, Dr. Gretchen Perez. She felt that the patient was having constipation which could be due to narcotic use for fibromyalgia causing opioid-induced constipation, possible post infectious gastroparesis, possible gastritis, . She felt the etiology could be combination of the differential diagnoses. She felt she might be a candidate for Relistor. She recommended continuing pantoprazole which she was on. She also felt the trial of Carafate could be considered, but she wants to avoid adding more medications to her regimen. She felt colonoscopy could be considered for recent CT imaging revealing focal mucosal thickening, but this should be done as an outpatient. HOSPITAL COURSE: The patient was initially treated for possible urinary tract infection. When her urine cultures came back and her urinalysis was repeated, the antibiotic was stopped (ceftriaxone). She remained nauseated throughout her hospitalization, although this improved somewhat. She was able to eat. Her laxatives were increased and she finally had a bowel movement on 07/22/17, which was semi-formed. She continued taking her narcotics. She did not take any antidepressants while she was in the hospital. She did have some appearance of being depressed while she was in the hospital. Her potassium was repleted. She had investigations as noted above. She was able to eat. She initially had IV fluids; these were subsequently stopped. The HIDA scan was done, but not with CCK, so this was a nondiagnostic study. By the time of discharge on 07/22/17, she had had the bowel movement, although she had vomited prior to the bowel movement. She continued to feel nauseated, but is eating a little. She was keeping liquids down. She had eaten some of her breakfast. She had eaten dinner the night before. She had walked in the [place], but once only yesterday. She stated that she had bowel movements every day or every other day prior to becoming sick few weeks ago. She always have to sit for a while on the toilet in order to have bowel movement. PHYSICAL EXAMINATION: At the time of discharge, her vital signs were blood pressure 144/87, pulse 99, respirations 18, temperature 98, O2 sat 99%. She appears subdued. She smiles occasionally. Chest is clear. Her heart is regular. Her abdomen is nontender and soft. It was felt that the etiology of her nausea was still not entirely clear, but she was keeping food down and might resolve with time. Lamotrigine level was pending at the time of discharge. She will continue laxatives as it was felt the constipation she has been having recently was contributing to her constipation. She had been seen in followup consultation by Dr. Perez, who had said she might qualify for Relistor or Linzess as an outpatient (Relistor for opioid-induced constipation, Linzess for IBS-related constipation). I felt she appears somewhat depressed off antidepressants. She may need to have these restarted as an outpatient. This was discussed. There is also the issue pending of her abnormal CT scan and this may need followup with the outpatient colonoscopy. At the time of discharge, she is to be on 6 small meals a day, gluten-free diet. ACTIVITY: As tolerated. DISCHARGE INSTRUCTIONS: She was encouraged to walk at least 3 times a day. DISCHARGE MEDICATIONS: Her medications are to be: 1. Moexipril 15 mg daily. 2. Lamotrigine 250 mg twice a day. 3. OxyContin 30 mg every 12 hours. 4. Ondansetron 4 mg every 4 hours as needed for nausea. 5. MiraLAX 17 g twice daily. 6. Oxycodone 5 mg every 4 hours as needed for pain. 7. Protonix 40 mg daily. 8. Senna 8.6 mg 2 pills twice a day. 9. Compazine (prochlorperazine) 10 mg p.o. every 6 hours or rectally 25 mg every 12 hours as needed for nausea. She is to stay off any antidepressants at this time. It is felt that her potassium will come up as she begins to eat normally. She was having trouble taking the large potassium pills given to her in the hospital. Her blood work will be BMP and a ferritin when she comes in for her appointment in 3 to 5 days in my office. She will be also following up with [facility] in 1 to 2 weeks. [id number]/[facility] #: [id number] STEPHIE
== END 2017-07-22 14:28 | disposition home or self-care (01) | DRG 392 ==
LOC: ED 13:54 → MED 19:48
PROVIDERS: ADMIT Internal Medicine; ATTEND Internal Medicine Geriatric Medicine
DX: R11.2 Nausea with vomiting, unspecified (principal); G40.109 Localization-related (focal) (partial) symptomatic epilepsy and epileptic syndromes with simple partial seizures, not intractable, without status epilepticus; M79.7 Fibromyalgia; M19.90 Unspecified osteoarthritis, unspecified site; F41.9 Anxiety disorder, unspecified; F32.9 Major depressive disorder, single episode, unspecified; K44.9 Diaphragmatic hernia without obstruction or gangrene; K58.1 Irritable bowel syndrome with constipation; R73.01 Impaired fasting glucose; E87.6 Hypokalemia; K31.84 Gastroparesis; K29.70 Gastritis, unspecified, without bleeding; K59.03 Drug induced constipation; T40.2X5A Adverse effect of other opioids, initial encounter; E78.5 Hyperlipidemia, unspecified; Z79.82 Long term (current) use of aspirin; Y92.9 Unspecified place or not applicable; Z78.0 Asymptomatic menopausal state; Z79.891 Long term (current) use of opiate analgesic; Z79.899 Other long term (current) drug therapy; Z87.891 Personal history of nicotine dependence; Z80.7 Family history of other malignant neoplasms of lymphoid, hematopoietic and related tissues; Z82.49 Family history of ischemic heart disease and other diseases of the circulatory system
CPT/HCPCS: 36415; 70551; 74019; 76705; 78226; 78264; 80048; 80053; 80175; 81003; 81015; 83605; 83690; 83735; 85025; 85027; 86140; 87086; 93005; 99284; A9270-GY; A9537; A9541; G8978-GP-CL; G8979-GP-CJ; J0360; J0696; J0780; J2405; J3480

== ENCOUNTER → 2019-02-04 07:29 | Day surgery (SDC) | payer MEDICARE, BC ==
[~2019-02-04 07:29] MED LIST: Buffered Lidocaine 1% SYRIN* 1 ML/SYRINGE INTRADERM ONE; Bupivacaine 0.25% SDV PF* 10 ML VIAL INJ ONE; Bupivacaine 0.5%* 50 ML MDV VIAL ONE; Clindamycin 900 MG/D5W BAG(*) 900 MG/50 ML BAG IVPB ONE; Dexamethasone IV* 4 MG/ML 1 ML (4 MG) IV SLOW PU ONE; Dexamethasone IV* 4 MG/ML 1 ML (4 MG) ONE; DiMENhydriNATE IV* 50 MG/ML VIAL IV PUSH PRN; Famotidine IV* 10 MG/ML 2 ML (20 mg) IV ONE; Famotidine IV* 10 MG/ML 2 ML (20 mg) ONE; HYDROmorphone INJ1* 1 MG/ML SYRINGE IV PRN; KETAMINE HCL* 50 MG/ML 10 ML VIAL ONE; Ketorolac INJ* 30 MG/ML 1 ML VIAL ONE; Lactated Ringers 1000 ML Bag* 1,000 ML IV SCH; Midazolam* 1 MG/ML 2 ML VIAL (2 MG) ONE; Naloxone* 0.4 MG/ML 1 ML VIAL IV PRN; Ondansetron INJ* 2 MG/ML VIAL ONE; Propofol* 10 MG/ML 20 ML BTL ONE; Scopolamine 1.5 mg* PATCH ONE; fentaNYL* 50 MCG/ML 2 ML VIAL (100 MCG VIAL) IV PRN; fentaNYL* 50 MCG/ML 2 ML VIAL (100 MCG VIAL) ONE
[2019-02-04 13:01] VITALS: BP 166/98
--- NOTE | 2019-02-04 15:57 | OP ---
Operative Report - Blank - Operative Report Date of Operation: 02/04/19 Note: PATIENT: Sowmya Feliciano DATE OF : 1945 DATE OF SURGERY: 02/04/2019 SURGEON: Jay Israel MD SUPERVISOR CALIBRATION: KIMBERLY Keating, whos assistance was necessary for positioning, retraction, help with instrumentation, and closure. ANESTHESIOLOGIST: Dr. Cunningham PREOPERATIVE DIAGNOSIS: Right peroneal tendon dislocation, peroneal tenosynovitis and peroneus brevis tear. POSTOPERATIVE DIAGNOSIS: Right peroneal tendon dislocation, peroneal tenosynovitis and irreparable peroneus brevis tear. OPERATION: 1. Right peroneus brevis tendon transfer tenodesis to peroneus longus tendon. 2. Right synovectomy of peroneal tendon sheath. 3. Right repair of dislocating peroneal tendons. ANESTHESIA: General IMPLANTS: Arthrex fibertak suture anchor x2 TOURNIQUET TIME: One hour with a well-padded thigh tourniquet at 250mmHg SPECIMENS: none ESTIMATED BLOOD LOSS: minimal COMPLICATIONS: none STATUS: Stable from the operating room to the recovery room and then home. INDICATIONS FOR PROCEDURE: Sowmya sustained a right ankle injury with peroneal tendon dislocations and a peroneus brevis tear. She has continued to have pain and difficulty with ambulation since the injury. Both operative and non operative treatment alternatives were reviewed. Further, the nature and risks of surgery were reviewed in careful detail, in the office as well as the pre-operative holding area. Our discussions regarding the risks of surgery included, but were not limited to, infection, wound problems, nerve injury, neuroma, RSD, persistent symptoms, blood clot, failure of the surgery, need for further surgery, and even the remote chance of catastrophic complication. DESCRIPTION OF PROCEDURE: The patient was seen in the preoperative holding unit and informed written consent was obtained. The appropriate extremity was marked. The patient was then brought to the operating room and carefully positioned on the operating room table. Anesthesia was induced. All bony prominences were padded with great care. A chlorhexidine based pre-scrub was performed followed by a chloraprep prep and drape in standard sterile fashion. A surgical safety pause was then conducted in which we confirmed the appropriate patient, extremity, planned procedure, availability of equipment, indication and administration of prophylactic antibiotics, and DVT prophylaxis in the form of a compression boot on the non-surgical extremity. An Esmarch exsanguination of the limb was then performed and the tourniquet inflated. I utilized an incision overlying the peroneal tendons laterally. I carried the dissection down through the soft tissue to the level of the periosteum and superior peroneal retinaculum (SPR) with care taken to protect the sural nerve, which was not visualized during the procedure. I carefully incised the SPR off of the posterior fibula to expose the peroneal tendons. The peroneus brevis was dislocated. Dissection of the tendons was carried distally. There was a large amount of inflamed tenosynovium within the tendon sheath. An extensive synovectomy was performed. Additionally, there was a low- lying peroneus brevis muscle belly which was debrided and excised. The tendons were explored at this time for any tears. There was an extensive tearing of the peroneus brevis tendon at the level of the distal fibula. It was torn into 4 main slips, all of which were degenerated and frayed. The tear was not repairable. Therefore, I elected to proceed with the tendon transfer tenodesis as I had discussed with her and her family preoperatively. The peroneus brevis was sutured to the peroneus longus tendon proximally using 0 Ethibond suture. The peroneus brevis was then sutured to the peroneus longus tendon distally, again using 0 Ethibond suture. These were performed where the peroneus brevis was intact and healthy appearing. I then used a 15 blade scalpel to excise the torn and degenerative part of the peroneus brevis tendon. At this point, I carefully inspected the peroneal groove at the posterior aspect of the fibula. This was deemed to have adequate depth so the decision was made not to perform a groove deepening procedure. So at this point I carefully planned out the repair of the superior peroneal retinaculum. The SPR was attenuated and elongated, likely from stretching by the dislocated tendon. I then reduced the tendons and they sat nicely in the retro-fibular groove. The wound was copiously irrigated. I repaired and tightened the SPR utilizing the Arthrex fibertak suture anchors and #1 Vicryl. I utilized multiple sutures for this repair, appropriately tensioning the SPR. I was able to pass a [place] under the repaired SPR without difficulty after the repair, but I did tighten the SPR to try to restore stability. We then irrigated the wound copiously again. The wound was closed in a layered fashion utilizing 3-0 Monocryl and 3-0 nylon. A sterile dressing was then applied and the ankle was splinted in a neutral position. All needle and sponge counts were correct at the end of the case. The patient was awakened from anesthesia and transferred to the recovery room in stable condition. There were no complications. ATTESTATION: I attest I was present and scrubbed and performed the critical portions of the procedure myself. POST-OPERATIVE PLAN: The patient will remain [id number] for an anticipated duration of 6 weeks. Follow up will be in 2 weeks for likely suture removal and transition into a short leg cast.
== END | disposition home or self-care (01) ==
LOC: OR 07:29
PROVIDERS: ATTEND Orthopaedic Surgery
DX: S86.311A Strain of muscle(s) and tendon(s) of peroneal muscle group at lower leg level, right leg, initial encounter (principal); M65.871 Other synovitis and tenosynovitis, right ankle and foot; M25.371 Other instability, right ankle; I10 Essential (primary) hypertension; E78.5 Hyperlipidemia, unspecified; M19.90 Unspecified osteoarthritis, unspecified site; Z88.0 Allergy status to penicillin; Z88.8 Allergy status to other drugs, medicaments and biological substances; W20.8XXA Other cause of strike by thrown, projected or falling object, initial encounter; Y92.512 Supermarket, store or market as the place of occurrence of the external cause
CPT/HCPCS: A9270-GY; C1713; J1100; J1885; J2250; J2405; J2704; J3010; J3490

== ENCOUNTER 2021-02-15 12:59 | Observation (INO) ==
[2021-02-15] MEDS ORDERED: NS 0.9% 1000 ml BAG 1,000 ML IV ONE (15:52)
[2021-02-15 16:44] LABS: Albumin 4.4 g/dL (3.2-5.2); Albumin/Globulin Ratio 1.3 (1-3); Globulin 3.3 g/dL (2-4); Magnesium 2.1 mg/dL (1.9-2.7); Potassium 3.1 mmol/L (3.5-5.0); Total Bilirubin 0.9 mg/dL (0.2-1.0); Total Protein 7.7 g/dL (6.4-8.9)
[2021-02-15] MEDS ORDERED: Potassium Chlor 10 meq TAB PO ONE (17:36)
[2021-02-15 17:43] LABS: Urine Appearance Clear; Urine Bilirubin Negative (Negative); Urine Blood Negative (Negative); Urine Color Yellow; Urine Glucose Negative (Negative); Urine Ketones Negative (Negative); Urine Nitrite Negative (Negative); Urine Protein Negative (Negative); Urine Specific Gravity 1.011 (1.002-1.030); Urine Urobilinogen Negative (Negative)
[2021-02-15 17:46] LABS: ABS Eosinophils 0.1 10^3/ul (0-0.6); ABS Monocytes 0.6 10^3/ul (0-0.8); ABS Neutrophils 7.2 10^3/ul (1.5-7.7); Eosinophil % 1.2 %; Hematocrit 35 % (35-47); Lymphocyte % 11.3 %; Mean Corpuscular HGB Conc 35 g/dL (31-36); Mean Corpuscular Hemoglobin 28 pg (27-31); Mean Corpuscular Volume 79 fL (80-97); Mean Platelet Volume 8.4 fL (7.4-10.4); Platelet Count 203 10^3/uL (150-450); Red Blood Count 4.35 10^6 /uL (3.70-4.87); Red Cell Distribution Width 15 % (10-15)
[2021-02-15 18:11] LABS: Urine Bacteria 1+ (Absent); Urine Red Blood Cell Trace(0-2/hpf) (Absent); Urine Squamous Epithelial Cell Present (Absent); Urine White Blood Cell Trace(0-5/hpf) (Absent)
[2021-02-15 18:31] LABS: Rapid COVID-19 Molecular Undetected (Undetected)
[2021-02-15] MEDS ORDERED: Al Hydrox/Mg Hydrox/Simet LIQ 30 ML UDC PO PRN (18:37)
[2021-02-15] MEDS ORDERED: Ondansetron 4 mg VIAL 2 MG/ML 2 ml VIAL IV PRN (18:37)
[2021-02-15 19:12] LABS: TSH Ultra Thyroid Stim Horm 3.59 mcIU/mL (0.34-5.60)
[2021-02-15] MEDS: oxyCODONE SR 10 mg TAB PO SCH (20:34)
[2021-02-15] MEDS: Enoxaparin 40 MG/0.4 ML SYR SUBCUT SCH (23:51)
[2021-02-16 06:48] LABS: ABS Eosinophils 0.1 10^3/ul (0-0.6); ABS Lymphocytes 1.4 10^3/ul (1.0-4.8); ABS Monocytes 0.4 10^3/ul (0-0.8); ABS Neutrophils 4.3 10^3/ul (1.5-7.7); Eosinophil % 1.5 %; Hematocrit 38 % (35-47); Hemoglobin 12.8 g/dL (12.0-16.0); Lymphocyte % 22.1 %; Mean Corpuscular HGB Conc 34 g/dL (31-36); Mean Corpuscular Hemoglobin 27 pg (27-31); Mean Corpuscular Volume 80 fL (80-97); Mean Platelet Volume 8.1 fL (7.4-10.4); Platelet Count 230 10^3/uL (150-450); Red Blood Count 4.72 10^6 /uL (3.70-4.87); Red Cell Distribution Width 15 % (10-15); White Blood Count 6.2 10^3/uL (3.5-10.8)
[2021-02-16 07:15] LABS: Calcium 9.7 mg/dL (8.6-10.3); HDL Cholesterol 64.3 mg/dL; Potassium 3.2 mmol/L (3.5-5.0)
[2021-02-16] MEDS: oxyCODONE SR 10 mg TAB PO SCH ×2 (08:28→20:45)
[2021-02-16] MEDS ORDERED: DULoxetine DR 30 mg CAP PO SCH (09:00)
[2021-02-16] MEDS: Potassium Chlor 20 meq TAB.ER PO SCH (14:34)
[2021-02-16] MEDS: Enoxaparin 40 MG/0.4 ML SYR SUBCUT SCH (20:48)
[2021-02-17] MEDS ORDERED: DULoxetine DR 60 mg CAP PO SCH (09:00)
[2021-02-17 09:42] LABS: Calcium 9.8 mg/dL (8.6-10.3); Magnesium 2.1 mg/dL (1.9-2.7); Potassium 3.8 mmol/L (3.5-5.0)
[2021-02-17] MEDS ORDERED: Polyethylene Glycol 3350 17 GM PACKET PO SCH (11:00)
[2021-02-17] MEDS: Potassium Chlor 20 meq TAB.ER PO SCH (11:01)
[2021-02-17] MEDS: oxyCODONE SR 10 mg TAB PO SCH (11:02)
[2021-02-17 12:04] VITALS: BP 147/79
== END 2021-02-17 16:55 | disposition home or self-care (01) ==
LOC: ED 12:59 → MEDTELE 12:59 → SUATTDRO 18:37 → MEDTELE 22:41
PROVIDERS: ADMIT Hospitalist; ATTEND Student in an Organized Health Care Education/Training Program

== ENCOUNTER 2023-02-27 13:12 | Inpatient (IN) ==
[2023-02-27 14:02] LABS: ABS Basophils 0.1 10^3/uL (0.0-0.1); ABS Lymphocytes 1.1 10^3/uL (1.0-4.8); ABS Monocytes 0.6 10^3/uL (0.0-0.9); ABS Neutrophils 4.8 10^3/uL (1.5-7.6); Eosinophil % 0.2 %; Lymphocyte % 17.1 %; Mean Corpuscular Hemoglobin 27.6 pg (27-33); Mean Corpuscular Hgb Conc 34.4 g/dL (31-36); Mean Corpuscular Volume 80.2 fL (80-97); Mean Platelet Volume 7.4 fL (7.5-11.2); Nucleated Red Blood Cells % 0.1 %/100WBC (0.0-0.8); Platelet Count 231 10^3/uL (150-450); Red Blood Count 3.99 10^6/uL (3.63-4.92); Red Cell Distribution Width 14.4 % (12-17); White Blood Count 6.6 10^3/uL (3.8-11.8)
[2023-02-27 14:31] LABS: High Sens Troponin Baseline < 3 pg/mL (<15)
[2023-02-27 14:36] LABS: ALT 7 U/L (7-52); AST 12 U/L (13-39); Albumin 3.3 g/dL (3.2-5.2); Albumin/Globulin Ratio 1.7 (1-3); Alkaline Phosphatase 67 U/L (35-149); Anion Gap 10 mmol/L (2-16); Blood Urea Nitrogen 13 mg/dL (6-24); C Reactive Protein 20.13 mg/L (<8.01); CO2 Carbon Dioxide 21 mmol/L (22-32); Chloride 108 mmol/L (101-111); Creatinine, Serum 0.75 mg/dL (0.51-0.95); Globulin 1.9 g/dL (2-4); Glucose 87 mg/dL (70-100); Magnesium 1.6 mg/dL (1.9-2.7); Sodium 139 mmol/L (135-145); Total Bilirubin 0.5 mg/dL (0.2-1.0); Total Protein 5.2 g/dL (6.4-8.9); eGFR CKD-EPI 81.4 (>60)
[2023-02-27 14:41] LABS: TSH Ultra Thyroid Stim Horm 1.85 mcIU/mL (0.34-5.60)
[2023-02-27 15:37] LABS: High Sensitivity Troponin 1 Hr < 3 pg/mL (<15)
[2023-02-27] MEDS ORDERED: Magnesium Sulf 4 GM/100 ML IV 4,000 MG/100 ML BAG IVPB ONE (16:45)
[2023-02-27] MEDS ORDERED: Naloxone Nasal Spray 4 MG/0.1 ML NASAL.SPR INTRANASAL PRN (17:25)
[2023-02-27] MEDS: Enoxaparin 40 MG/0.4 ML SYR SUBCUT SCH (17:25)
[2023-02-27 18:02] LABS: Calcium 7.8 mg/dL (8.6-10.3)
[2023-02-27] MEDS: KCL 20 MEQ/100 ML IVPREMIX 20 MEQ/100 ML BAG IV SCH ×2 (20:27→22:29)
[2023-02-27] MEDS: oxyCODONE SR 10 mg TAB PO SCH (20:32)
[2023-02-27] MEDS: Senna TAB 8.6 mg TAB PO PRN (20:35)
[2023-02-28] MEDS: KCL 20 MEQ/100 ML IVPREMIX 20 MEQ/100 ML BAG IV SCH ×2 (00:36→03:13)
[2023-02-28 06:12] LABS: ABS Lymphocytes 1.1 10^3/uL (1.0-4.8); ABS Monocytes 0.6 10^3/uL (0.0-0.9); ABS Neutrophils 5.5 10^3/uL (1.5-7.6); Eosinophil % 0.1 %; Hematocrit 33.3 % (35-45); Hemoglobin 11.4 g/dL (11.5-14.3); Lymphocyte % 15.2 %; Mean Corpuscular Hemoglobin 27.2 pg (27-33); Mean Corpuscular Hgb Conc 34.2 g/dL (31-36); Mean Corpuscular Volume 79.4 fL (80-97); Mean Platelet Volume 7.5 fL (7.5-11.2); Platelet Count 248 10^3/uL (150-450); Red Cell Distribution Width 14.1 % (12-17); White Blood Count 7.2 10^3/uL (3.8-11.8)
[2023-02-28 06:54] LABS: Calcium 9.4 mg/dL (8.6-10.3); Creatinine, Serum 0.72 mg/dL (0.51-0.95); Magnesium 2.3 mg/dL (1.9-2.7); Potassium 4.1 mmol/L (3.5-5.0); eGFR CKD-EPI 85.5 (>60)
[2023-02-28] MEDS: Aspirin EC 81 mg TAB.EC (enteric coated) PO SCH (07:56)
[2023-02-28] MEDS: oxyCODONE SR 10 mg TAB PO SCH ×2 (07:58→20:39)
[2023-02-28] MEDS: Enoxaparin 40 MG/0.4 ML SYR SUBCUT SCH (17:21)
[2023-03-01 07:14] LABS: ABS Lymphocytes 1.1 10^3/uL (1.0-4.8); ABS Monocytes 0.5 10^3/uL (0.0-0.9); ABS Neutrophils 4.4 10^3/uL (1.5-7.6); Eosinophil % 0.1 %; Hemoglobin 12.2 g/dL (11.5-14.3); Lymphocyte % 18.5 %; Mean Corpuscular Hemoglobin 27.2 pg (27-33); Mean Platelet Volume 7.2 fL (7.5-11.2); Platelet Count 259 10^3/uL (150-450); Red Cell Distribution Width 14.1 % (12-17)
[2023-03-01 07:50] LABS: Calcium 10.1 mg/dL (8.6-10.3); Creatinine, Serum 0.81 mg/dL (0.51-0.95); Magnesium 2.1 mg/dL (1.9-2.7); Potassium 3.8 mmol/L (3.5-5.0); eGFR CKD-EPI 74.3 (>60)
[2023-03-01] MEDS: Aspirin EC 81 mg TAB.EC (enteric coated) PO SCH (08:43)
[2023-03-01] MEDS: oxyCODONE SR 10 mg TAB PO SCH ×2 (08:44→23:27)
[2023-03-01] MEDS: Enoxaparin 40 MG/0.4 ML SYR SUBCUT SCH (17:47)
[2023-03-02 06:04] LABS: ABS Lymphocytes 1.2 10^3/uL (1.0-4.8); ABS Monocytes 0.4 10^3/uL (0.0-0.9); ABS Neutrophils 4.7 10^3/uL (1.5-7.6); ABS Nucleated RBC 0.01 10^3/ul; Eosinophil % 0.1 %; Hematocrit 37.4 % (35-45); Hemoglobin 12.8 g/dL (11.5-14.3); Lymphocyte % 19.2 %; Mean Corpuscular Hemoglobin 27.3 pg (27-33); Mean Corpuscular Hgb Conc 34.2 g/dL (31-36); Mean Corpuscular Volume 79.8 fL (80-97); Mean Platelet Volume 7.6 fL (7.5-11.2); Nucleated Red Blood Cells % 0.1 %/100WBC (0.0-0.8); Platelet Count 292 10^3/uL (150-450); Red Blood Count 4.69 10^6/uL (3.63-4.92); Red Cell Distribution Width 13.8 % (12-17); White Blood Count 6.4 10^3/uL (3.8-11.8)
[2023-03-02 06:44] LABS: Calcium 10.3 mg/dL (8.6-10.3); Creatinine, Serum 0.75 mg/dL (0.51-0.95); Potassium 3.5 mmol/L (3.5-5.0); eGFR CKD-EPI 81.4 (>60)
[2023-03-02] MEDS ORDERED: Potassium Chlor 20 meq TAB.ER PO ONE (07:23)
[2023-03-02] MEDS: Aspirin EC 81 mg TAB.EC (enteric coated) PO SCH (11:18)
[2023-03-02] MEDS: oxyCODONE SR 10 mg TAB PO SCH (11:19)
[2023-03-02] MEDS: Senna TAB 8.6 mg TAB PO PRN (16:43)
[2023-03-02] MEDS: Enoxaparin 40 MG/0.4 ML SYR SUBCUT SCH (16:44)
[2023-03-02] MEDS: Polyethylene Glycol 3350 17 GM PACKET PO PRN (20:29)
[2023-03-02] MEDS: oxyCODONE SR 20 mg TAB PO SCH (20:30)
[2023-03-03 07:07] LABS: ABS Lymphocytes 1.2 10^3/uL (1.0-4.8); ABS Monocytes 0.5 10^3/uL (0.0-0.9); ABS Neutrophils 4.5 10^3/uL (1.5-7.6); Eosinophil % 0.2 %; Hematocrit 36.4 % (35-45); Hemoglobin 12.1 g/dL (11.5-14.3); Lymphocyte % 19.4 %; Mean Corpuscular Hemoglobin 26.8 pg (27-33); Mean Corpuscular Hgb Conc 33.3 g/dL (31-36); Mean Corpuscular Volume 80.3 fL (80-97); Mean Platelet Volume 7.1 fL (7.5-11.2); Nucleated Red Blood Cells % 0.1 %/100WBC (0.0-0.8); Platelet Count 287 10^3/uL (150-450); Red Blood Count 4.53 10^6/uL (3.63-4.92); Red Cell Distribution Width 14.1 % (12-17); White Blood Count 6.3 10^3/uL (3.8-11.8)
[2023-03-03 07:16] LABS: Urine Bacteria 1+ (Absent); Urine Red Blood Cell 2+(6-10/hpf) (Absent); Urine Squamous Epithelial Cell Present (Absent); Urine White Blood Cell 3+(>20/hpf) (Absent)
[2023-03-03 07:28] LABS: Calcium 10.2 mg/dL (8.6-10.3); Creatinine, Serum 0.76 mg/dL (0.51-0.95); Magnesium 2.1 mg/dL (1.9-2.7); Potassium 4.2 mmol/L (3.5-5.0); eGFR CKD-EPI 80.2 (>60)
[2023-03-03 07:31] LABS: Urine Appearance Cloudy; Urine Bilirubin Negative (Negative); Urine Blood 1+ (Negative); Urine Color Yellow; Urine Glucose Negative (Negative); Urine Ketones Negative (Negative); Urine Nitrite Positive (Negative); Urine Protein Negative (Negative); Urine Specific Gravity 1.009 (1.002-1.030); Urine Urobilinogen Negative (Negative)
[2023-03-03] MEDS: oxyCODONE SR 20 mg TAB PO SCH ×2 (09:12→20:10)
[2023-03-03] MEDS: Aspirin EC 81 mg TAB.EC (enteric coated) PO SCH (09:13)
[2023-03-03] MEDS: cefTRIAXone 1 gm/50 mL D5W 1 GM/50 ML BAG IV SCH (12:46)
[2023-03-03] MEDS: Enoxaparin 40 MG/0.4 ML SYR SUBCUT SCH (16:16)
[2023-03-03] MEDS: Polyethylene Glycol 3350 17 GM PACKET PO PRN (20:07)
[2023-03-03] MEDS: Senna TAB 8.6 mg TAB PO PRN (20:10)
[2023-03-04] MEDS: oxyCODONE SR 20 mg TAB PO SCH ×2 (09:08→19:53)
[2023-03-04] MEDS: Aspirin EC 81 mg TAB.EC (enteric coated) PO SCH (09:08)
[2023-03-04] MEDS: cefTRIAXone 1 gm/50 mL D5W 1 GM/50 ML BAG IV SCH (13:56)
[2023-03-04] MEDS: Enoxaparin 40 MG/0.4 ML SYR SUBCUT SCH (16:49)
[2023-03-04] MEDS: Polyethylene Glycol 3350 17 GM PACKET PO PRN (19:52)
[2023-03-04] MEDS: Senna TAB 8.6 mg TAB PO PRN (19:54)
[2023-03-05 07:16] LABS: ABS Lymphocytes 1.1 10^3/uL (1.0-4.8); ABS Monocytes 0.5 10^3/uL (0.0-0.9); ABS Neutrophils 3.6 10^3/uL (1.5-7.6); Eosinophil % 0.4 %; Hematocrit 36.1 % (35-45); Hemoglobin 12.1 g/dL (11.5-14.3); Lymphocyte % 21.4 %; Mean Corpuscular Hemoglobin 27.1 pg (27-33); Mean Corpuscular Hgb Conc 33.5 g/dL (31-36); Mean Corpuscular Volume 80.9 fL (80-97); Nucleated Red Blood Cells % 0.1 %/100WBC (0.0-0.8); Platelet Count 269 10^3/uL (150-450); Red Blood Count 4.47 10^6/uL (3.63-4.92); Red Cell Distribution Width 14.2 % (12-17); White Blood Count 5.3 10^3/uL (3.8-11.8)
[2023-03-05 08:54] LABS: Calcium 9.8 mg/dL (8.6-10.3); Creatinine, Serum 0.81 mg/dL (0.51-0.95); Magnesium 2.3 mg/dL (1.9-2.7); Potassium 3.8 mmol/L (3.5-5.0); eGFR CKD-EPI 74.3 (>60)
[2023-03-05] MEDS: Aspirin EC 81 mg TAB.EC (enteric coated) PO SCH (09:10)
[2023-03-05] MEDS: oxyCODONE SR 20 mg TAB PO SCH (09:10)
[2023-03-05] MEDS: cefTRIAXone 1 gm/50 mL D5W 1 GM/50 ML BAG IV SCH (12:43)
[2023-03-05 14:17] VITALS: BP 133/81
== END 2023-03-05 15:25 | disposition home health service (06) | DRG 641 ==
LOC: EDHOLD 13:12 → ED 13:12 → SUATTDRO 16:14 → MED 17:46
PROVIDERS: ADMIT Family Medicine; ATTEND Hospitalist

== ENCOUNTER 2023-03-10 12:43 | Observation (INO) ==
[2023-03-10] MEDS ORDERED: Lactated Ringers 1000 ml BAG 1,000 ML IV ONE (12:58)
[2023-03-10 13:44] LABS: ABS Lymphocytes 1.2 10^3/uL (1.0-4.8); ABS Monocytes 0.5 10^3/uL (0.0-0.9); ABS Neutrophils 4.2 10^3/uL (1.5-7.6); Eosinophil % 0.1 %; Hematocrit 32.7 % (35-45); Hemoglobin 11.3 g/dL (11.5-14.3); Lymphocyte % 20.8 %; Mean Corpuscular Hemoglobin 27.6 pg (27-33); Mean Corpuscular Hgb Conc 34.5 g/dL (31-36); Mean Corpuscular Volume 80.1 fL (80-97); Mean Platelet Volume 7.4 fL (7.5-11.2); Nucleated Red Blood Cells % 0.1 %/100WBC (0.0-0.8); Platelet Count 262 10^3/uL (150-450); Red Blood Count 4.08 10^6/uL (3.63-4.92); Red Cell Distribution Width 14.6 % (12-17); White Blood Count 5.9 10^3/uL (3.8-11.8)
[2023-03-10 14:25] LABS: ALT 12 U/L (7-52); Albumin 3.9 g/dL (3.2-5.2); Albumin/Globulin Ratio 1.5 (1-3); Alkaline Phosphatase 83 U/L (35-149); Anion Gap 10 mmol/L (2-16); Blood Urea Nitrogen 16 mg/dL (6-24); C Reactive Protein 5.93 mg/L (<8.01); CO2 Carbon Dioxide 22 mmol/L (22-32); Calcium 9.7 mg/dL (8.6-10.3); Chloride 104 mmol/L (101-111); Globulin 2.6 g/dL (2-4); Glucose 98 mg/dL (70-100); High Sens Troponin Baseline < 3 pg/mL (<15); Lipase 14 U/L (11.0-82.0); Sodium 136 mmol/L (135-145); Total Bilirubin 0.5 mg/dL (0.2-1.0); Total Protein 6.5 g/dL (6.4-8.9); eGFR CKD-EPI 75.4 (>60)
[2023-03-10 15:23] LABS: Urine Appearance Clear; Urine Bilirubin Negative (Negative); Urine Blood Negative (Negative); Urine Color Yellow; Urine Glucose Negative (Negative); Urine Ketones Negative (Negative); Urine Nitrite Negative (Negative); Urine Protein Negative (Negative); Urine Specific Gravity 1.013 (1.002-1.030); Urine Urobilinogen Negative (Negative)
[2023-03-10 15:59] LABS: Urine Bacteria Absent (Absent); Urine Red Blood Cell 2+(6-10/hpf) (Absent); Urine Squamous Epithelial Cell Present (Absent); Urine White Blood Cell Trace(0-5/hpf) (Absent)
[2023-03-10] MEDS ORDERED: oxyCODONE SR 15 mg TAB PO ONE (16:02)
[2023-03-10 16:30] LABS: High Sensitivity Troponin 1 Hr < 3 pg/mL (<15)
[2023-03-10] MEDS: Enoxaparin 40 MG/0.4 ML SYR SUBCUT SCH (20:14)
[2023-03-10] MEDS: oxyCODONE SR 10 mg TAB PO SCH (20:15)
[2023-03-10] MEDS: ACIDOPH PARACASEI B LACTIS PO SCH (23:34)
[2023-03-11] MEDS: Cholecalciferol (VIT D3) 1,000 unit TAB PO SCH (09:19)
[2023-03-11] MEDS: oxyCODONE SR 10 mg TAB PO SCH ×2 (09:20→22:41)
[2023-03-11] MEDS: Aspirin EC 81 mg TAB.EC (enteric coated) PO SCH (09:20)
[2023-03-11] MEDS: Enoxaparin 40 MG/0.4 ML SYR SUBCUT SCH (17:04)
[2023-03-11] MEDS: Polyethylene Glycol 3350 17 GM PACKET PO PRN (22:38)
[2023-03-11] MEDS: ACIDOPH PARACASEI B LACTIS PO SCH (22:52)
[2023-03-12 00:37] LABS: Potassium, Whole Blood 3.2 mmol/L (3.4-4.5)
[2023-03-12] MEDS: Aspirin EC 81 mg TAB.EC (enteric coated) PO SCH (09:32)
[2023-03-12] MEDS: oxyCODONE SR 10 mg TAB PO SCH ×2 (09:33→21:27)
[2023-03-12] MEDS: Cholecalciferol (VIT D3) 1,000 unit TAB PO SCH (09:33)
[2023-03-12] MEDS ORDERED: Potassium Chloride LIQUID 20 MEQ/15 ML LIQUID PO ONE ×2 (09:59→18:16)
[2023-03-12] MEDS: Enoxaparin 40 MG/0.4 ML SYR SUBCUT SCH (17:52)
[2023-03-12 18:14] LABS: Calcium 10.2 mg/dL (8.6-10.3); Creatinine, Serum 0.68 mg/dL (0.51-0.95); Potassium 3.4 mmol/L (3.5-5.0); eGFR CKD-EPI 89.1 (>60)
[2023-03-12] MEDS: Polyethylene Glycol 3350 17 GM PACKET PO PRN (21:24)
[2023-03-12] MEDS: ACIDOPH PARACASEI B LACTIS PO SCH (21:30)
[2023-03-13] MEDS ORDERED: Lactulose 30 ml UDC PO ONE ×2 (01:12→06:00)
[2023-03-13] MEDS: Aspirin EC 81 mg TAB.EC (enteric coated) PO SCH (08:43)
[2023-03-13] MEDS: oxyCODONE SR 10 mg TAB PO SCH (08:44)
[2023-03-13] MEDS: Cholecalciferol (VIT D3) 1,000 unit TAB PO SCH (08:44)
[2023-03-13] MEDS ORDERED: SMOG Enema (MgOH-NS-Gly-MinO) 330 ML ENEMA PR ONE (09:00)
[2023-03-13 09:49] VITALS: BP 196/91
== END 2023-03-13 12:40 ==
LOC: EDHOLD 12:43 → ED 12:43 → SUATTDRO 17:24 → MED 18:47
PROVIDERS: ADMIT Internal Medicine; ATTEND Student in an Organized Health Care Education/Training Program